=== PATIENT | male | born 1945 | race Caucasian/White ===

== ENCOUNTER 2024-10-14 06:04 | Day surgery (SDC) | payer BC, MEDICARE ==
[2024-10-08 10:52] LABS: Urine Bacteria None Seen /hpf (None Seen)
[2024-10-08 11:08] LABS: Urine Blood Negative /uL (Negative); Urine Clarity Clear (Clear); Urine Color Light-Yellow (Yellow); Urine Protein, UAD TRACE (Negative); Urine Specific Gravity 1.018 (1.001-1.035); Urine Squamous Epithelial Cell None Seen /hpf (<5); Urine Urobilinogen Normal (Negative); Urine pH 5.5 (5.0-9.0)
[2024-10-08 11:09] LABS: Basophils # (auto) 0 10 ^3/uL (0-0.2); Basophils % (auto) 0.7 % (0.0-2.0); Eosinophils # (auto) 0.4 10 ^3/uL (0-0.8); Eosinophils % (auto) 6.9 % (0.0-7.0); Lymphocytes # (auto) 1.1 10 ^3/uL (0.4-5.4); Monocytes # (auto) 0.6 10 ^3/uL (0-1.3); Neutrophils # (auto) 3.3 10 ^3/uL (1.6-8.6)
[2024-10-08 11:12] LABS: Hematocrit 38.3 % (41.0-53.0); Hemoglobin 12.9 g/dL (13.5-17.5); INR 1.36 (0.9-1.15); Lymphocytes % (auto) 20.1 % (10.0-50.0); Mean Corpuscular Hemoglobin 34.2 pg (28.0-32.0); Mean Corpuscular Hgb Conc. 33.5 g/dL (32.0-36.0); Monocytes % (auto) 11.4 % (0.0-12.0); Neutrophils % (auto) 60.9 % (37.0-80.0); Nucleated Red Blood Cells % 0.1 %; Partial Thromboplastin Time 49.2 SEC (24.5-34.5); Platelet Count (auto) 199 10^3/uL (140-450); Red Blood Cells 3.76 10^6/uL (4.5-5.90); Red Cell Distribution Width 12.6 % (11.8-14.3); White Blood Cell 5.3 10^3/uL (4.4-10.8)
[2024-10-08 11:25] LABS: Alanine Aminotransferase 15 U/L (7-40); Albumin 4.4 g/dL (3.2-4.8); Alkaline Phosphatase 96 U/L (46-116); Anion Gap 7 (5-15); Aspartate Aminotransferase 14 U/L (13-40); Calcium 9.9 mg/dL (8.7-10.4); Carbon Dioxide 28 mmol/L (20-31); Glucose 94 mg/dL (74-106); Sodium 144 mmol/L (136-145)
[2024-10-08 11:27] LABS: Bilirubin, Total 0.5 mg/dL (0.2-1.0)
[2024-10-08 11:35] LABS: Blood Urea Nitrogen 34 mg/dL (9-23); Chloride 109 mmol/L (98-107)
[~2024-10-14] VITALS: Ht 180.3 cm; Wt 83.9 kg
[~2024-10-14 06:04] MED LIST: ALFU1TAB15 PO; ATOR20TA50 PO; DABI150C5 PO; FLUT1AER3 IN; GABA-1250 PO; HYDR-4902 PO; MONT-8 PO; PANT40TA2 PO; PRAM0.7513 PO; SILD20TA41 PO; SOTA80TA PO; ZOLP10TA6 PO
[2024-10-14] MEDS ORDERED: ceFAZolin 2 GM/D5W100ml 100 ML IV ONE (06:14)
[2024-10-14] MEDS ORDERED: CLINDAMYCIN 600MG IV 0 ML IV ONE (06:14)
[2024-10-14] MEDS ORDERED: fentaNYL CITRATE 100 MCG/2 ML VL ONE (06:57)
[2024-10-14] MEDS ORDERED: PHENYLEPHRINE HCL 10 MG/ML VL ONE (06:58)
[2024-10-14] MEDS ORDERED: PROPOFOL 10 MG/ML 20 ML IV ONE ×2 (06:58→08:35)
[2024-10-14] MEDS: LIDOCAINE W/ EPINEPHRINE 2% INJ 20ML VIAL ONE (07:34)
[2024-10-14] MEDS: BUPIVACAINE 0.25% INJ 50ML VIAL ONE (07:34)
[2024-10-14] MEDS: MORPHINE SULF PF 5 MG/10 ML VIAL ONE (07:35)
[2024-10-14] MEDS ORDERED: ePHEDrine SULFATE 50 MG/ML AMP ONE (07:53)
[2024-10-14 08:19] VITALS: TEMP 97.9; O2SAT 96
[2024-10-14 08:51] VITALS: BP 131/51; PULSE 57; RESP 15; O2SAT 95
--- NOTE | 2024-10-14 09:05 | DVH ---
C-ARM FLUOROSCOPY: PROCEDURE: nerve ablation FLUOROSCOPY TIME: 145.9 sec DAP: 59 mgy FINDINGS: Spot intraoperative C arm radiographs demonstrating nerve ablation. IMPRESSION: Please refer to surgical report for detailed findings.
--- NOTE | 2024-10-14 09:05 | DVH ---
C-ARM FLUOROSCOPY: PROCEDURE: nerve ablation FLUOROSCOPY TIME: 145.9 sec DAP: 59 mgy FINDINGS: Spot intraoperative C arm radiographs demonstrating nerve ablation. IMPRESSION: Please refer to surgical report for detailed findings.
== END 2024-10-14 09:06 | disposition home or self-care (01) ==
LOC: SUR 06:04
PROVIDERS: ATTEND Anesthesiology Pain Medicine
DX: M54.51 Vertebrogenic low back pain (principal); G89.29 Other chronic pain; M47.816 Spondylosis without myelopathy or radiculopathy, lumbar region; M51.369 Other intervertebral disc degeneration, lumbar region without mention of lumbar back pain or lower extremity pain; M48.061 Spinal stenosis, lumbar region without neurogenic claudication; M79.18 Myalgia, other site; M19.90 Unspecified osteoarthritis, unspecified site; I48.0 Paroxysmal atrial fibrillation; J43.9 Emphysema, unspecified; N18.30 Chronic kidney disease, stage 3 unspecified; Z79.01 Long term (current) use of anticoagulants; Z79.899 Other long term (current) drug therapy; Z98.890 Other specified postprocedural states; Z88.8 Allergy status to other drugs, medicaments and biological substances; Z91.040 Latex allergy status; Z91.011 Allergy to milk products
CPT/HCPCS: 36415; 64628; 72100; 80053; 81001; 85025; 85610; 85730; A4215; C1889; J2270; J2371; J2704; J3010; 76000; J3490

== ENCOUNTER → 2025-02-18 | Outpatient (CLI) | payer MEDICARE ==
[~2025-02-18] VITALS: Ht 180.3 cm; Wt 81.6 kg
[2025-02-18] MEDS: REGADENOSON 0.4 MG/5 ML SYRG IV ONE ×2 (09:11→09:23)
--- NOTE | 2025-02-18 18:44 | DVHSR ---
APPROVED REPORT Exam: Nuclear Stress Test BMI: 0 Stress Test Details HR Max Heart Rate (APMHR): 142.772289 bpm Target HR (85% APMHR): 120.367341 bpm BP ECG Stress ECG Conclusion lvef 61% fixed inferior wall defect no major ischemia noted NM EXAM: Myocardial Perfusion REST/STRESS Imaging Protocol: Rest Tc-99m/Stress Tc-99m 1 day Resting Data Rest SPECT myocardial perfusion imaging was performed in supine position 60 minutes following the int ravenous injection of 10.5 mCi of Tc-99m Sestamibi. Time of rest injection: 08:05 Date: 02/18/2025 Time of rest imagin:05 Date: 02/18/2025 Administration Route: IV Administration Site: Right AC Pharmacologic Stress Pharmacologic stress test was performed by injecting Regadenoson 0.4 mg IV push followed by the intra venous injection of 30.5 mCi of Tc-99m Sestamibi. Time of stress injection: 09:24 Date: 02/18/2025 Time of stress imagin:24 Date: 02/18/2025 Administration Route: IV Administration Site: Right AC Gated Stress SPECT was performed 60 minutes after stress injection. The images were gated to evaluate regional wall motion and calculate left ventricular ejection fracti on. Stress only was performed in the Supine position. Nuclear Conclusion Nuclear Findings: negative for ischemia lvef 61% fixed inferior wall defect no major ischemia noted
== END | disposition home or self-care (01) ==
LOC: XYW 07:39
PROVIDERS: ATTEND Specialist
DX: I10 Essential (primary) hypertension (principal); I48.91 Unspecified atrial fibrillation; R06.02 Shortness of breath
CPT/HCPCS: 78452; 93017; A9500; J2785

== ENCOUNTER 2025-03-29 10:16 | Inpatient (IN) | payer MEDICARE ==
[~2025-03-29] VITALS: Ht 180.3 cm; Wt 81.6 kg
--- NOTE | 2025-03-29 10:24 | ED.PDOC ---
SOB-HPI HPI Comments HPI: Faye 80 y.o male presents to the ED via EMS for a chief complaint of SOB that started 2 days ago that worsened today. EMS reports patient was using his inhaler today, had no sx relief prompting him to call 911. EMS reports per patient, his initial SPO2 at home reads between 85-92% RA and presents to the ED with saturation at 88% RA. Patient did receive one breathing tx in route with symptom relief per patient. Patient denies any other associating symptoms. Patient is alert and oriented x 4. Patient is not on any oxygen at home, states he only uses his inhaler. Vital prior to ED arrival HR; 111 BP: 93/49 Vitals Temp: 98.8 HR:98 BP:106/78 RR:22 SPO2:95% RA Past Medical history: COPD, emphysema, HLD Past Surgical history: Medications: Gabapentin and inhaler Social History: Denies smoking, ETOH, and drug use. Allergies: NKA FAYE: DYSPNEA HYPOXEMIA HPI: Poor Historian. Patient was hypoxic at the scene. Improved after supplemental oxygen by EMS. Past Medical History: Past Surgical History: REVIEW OF SYSTEMS: CONSTITUTIONAL: Denies acute: fever, diaphoresis, chills, HEAD: Denies acute: headache, photophobia Eyes: Denies acute: Double vision, vision loss, eye pain, eye discharge. EARS: Denies acute: tinnitus, hearing loss, ear discharge, ear pain, THROAT: Denies acute: sore throat, swelling, difficulty swallowing , pain with swallowing, change in voice. NECK: Denies acute: neck pain, neck swelling, stiff neck. HEART: Denies acute : chest pain, palpitations, LUNGS: Denies acute: wheezing, cough, hemoptysis ABDOMEN: Denies acute: abdominal pain, Nausea, Vomiting, diarrhea, melena , hematemesis, hematochezia SKIN: Denies acute: rash, redness, lesions, itchiness. EXTREMITIES: Denies acute: calf pain, numbness, tingling, weakness, denies pain in extremity. Denies acute: Low back pain. Neuro: Denies acute: focal neurological deficit, motor or sensory focal neurological deficit, tremors, seizure like activity, confusion, dizziness, change in mental status, loss of bowel or bladder function, cauda equina like symptoms. : Denies acute: dysuria, hematuria, flank pain, increase in urinary frequency. PSYCH: Denies acute: hallucination, suicidal ideation, homicidal ideation. PHYSICAL EXAM: General: ----nlnj-xw-vjilzjxp----acute distress, awake and alert. Head: normocephalic, atraumatic. Neck: supple, trachea is midline, no swelling. Throat: Normal phonation. Eyes:, no erythema, no purulent discharge, no proptosis, no icterus. Heart: regular rate, regular rhythm, no significant murmur appreciated. Lungs: Wyam-qn-vpieucla apparent respiratory distress, Able to speak in full sentences. No wheezing, no rhonchi, no crackles. No stridors Abdomen: non tender to palpation, non distended, soft, no guarding, no rebound, + bowel sounds. Neuro: Awake, Alert, oriented to name, self, situation, follows commands GCS=15. Speech is normal. Skin: no petechia, no purpura, no cyanosis, non-pale, not jaundice. Lower extremities: --1/4 b/l- Pitting edema no deformity, no focal swelling, no calf TTP. Makes eye contact. moves all four extremities. Face: no apparent facial droop. ED COURSE: DISCLAIMER: This medical document was created using an electronic medical record system with voice recognition software and computerized dictation system. Although this document has been carefully reviewed, there might still be some phonetic and typographical errors. Occasional wrong-word or "sound-alike" substitutions may have occurred due to the inherent limitations of voice recognition software. These areas are purely typographical due to imperfections of the software programs and do not reflect any compromise in the patient's medical care. Please read the chart carefully and recognize, using context, where these substitutions have occurred. 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 Was a procedure done?: No Differential Dx Differential Diagnosis: Bronchitis, COPD, Pneumonia, Respiratory Distress, URI, Other (DDx include ACS, unstable angina, anxiety, PE, pneumothroax, neoplasm, cardiac ischemia, COPD, asthma, CHF, pleural effusion, tobacco abuse, pneumonia, hypoxia, hypercapnia, anemia., infection/sepsis., pulmonary edema. Asthma, Cardiac tamponade, infection.) X-Ray, Labs, Meds, VS Vital Signs Date Time Temp Pulse Resp B/P (MAP) Pulse Ox O2 Delivery O2 Flow Rate FiO2 03/29/25 17:22 97.4 88 20 106/63 (77) 90 97.4 03/29/25 15:12 98.7 90 20 82/57 (65) 91 98.7 03/29/25 12:08 100.6 92 20 92/49 (63) 95 100.6 03/29/25 12:03 92 20 95 Nasal Cannula* 2 28 03/29/25 11:54 18 96 Nasal Cannula* 2 28 03/29/25 11:14 98.8 98 22 106/78 95 98.8 Lab Test 03/29/25 16:04 03/29/25 13:52 03/29/25 13:30 03/29/25 11:59 Range/Units Troponin I High Sensitivity 24 39 49 </=54 ng/L Urine Color Yellow Yellow Urine Clarity Turbid H Clear Urine pH 5.5 5.0-9.0 Urine Specific [place] 1.024 1.001-1.035 Urine Protein 1+ H Negative Urine Ketones Negative Negative Urine Blood Negative Negative /uL Urine Nitrite Negative Negative Urine Bilirubin Negative Negative Urine Urobilinogen Normal Negative mg/dL Urine Leukocyte Esterase Negative Negative /uL Urine RBC 2 0 - 3 /hpf Urine Microscopic WBC 3 0-3 /HPF Urine Squamous Epithelial Cells Few <5 /hpf Urine Amorphous Crystals Few None Seen /hpf Urine Bacteria None seen None Seen /hpf Urine Glucose Normal Normal mg/dL Lactic Acid Level 2.0 0.4-2.0 mmol/L White Blood Count 25.4 H 4.4-10.8 10^3/uL Red Blood Count 3.04 L 4.5-5.90 10^6/uL Hemoglobin 10.3 L 13.5-17.5 g/dL Hematocrit 30.4 L 41.0-53.0 % Mean Corpuscular Volume 99.9 80.0-100.0 fL Mean Corpuscular Hemoglobin 33.8 H 28.0-32.0 pg Mean Corpuscular Hemoglobin Concent 33.8 32.0-36.0 g/dL Red Cell Distribution Width 13.5 11.8-14.3 % Platelet Count 478 H 140-450 10^3/uL Mean Platelet Volume 7.5 6.9-10.8 fL Neutrophils (%) (Auto) 37.0-80.0 % Lymphocytes (%) (Auto) 10.0-50.0 % Monocytes (%) (Auto) 0.0-12.0 % Basophils (%) (Auto) 0.0-2.0 % Neutrophils # (Auto) 1.6-8.6 10 ^3/uL Lymphocytes # (Auto) 0.4-5.4 10 ^3/uL Monocytes # (Auto) 0-1.3 10 ^3/uL Differential Total Cells Counted 100.0 100 Neutrophils % (Manual) 90 H 37.0-80.0 Band Neutrophils % (Manual) 0 Lymphocytes % (Manual) 2 L 10.0-50.0 Monocytes % (Manual) 8 0-12 Eosinophils % (Manual) 0 0-7 Basophils % (Manual) 0 0.0-2.0 Metamyelocytes % (manual) 0 Myelocytes % (Manual) 0 Promyelocytes % (Manual) 0 Blast Cells % (Manual) 0 Reactive Lymphocytes 0 Platelet Estimate Adequate Prothrombin Time 15.1 H 9.3-11.8 sec Prothrombin Time INR 1.48 H 0.9-1.15 Activated Partial Thromboplast Time 58.1 H 24.5-34.5 SEC Sodium Level 135 L 136-145 mmol/L Potassium Level 4.8 3.5-5.1 mmol/L Chloride Level 102 98-107 mmol/L Carbon Dioxide Level 22 20-31 mmol/L Anion Gap 11 5-15 Blood Urea Nitrogen 43 H 9-23 mg/dL Creatinine 2.85 H 0.700-1.30 mg/dL Glomerular Filtration Rate Calc 22 >90 mL/min BUN/Creatinine Ratio 15.1 10.0-20.0 Serum Glucose 101 74-106 mg/dL Calcium Level 9.0 8.7-10.4 mg/dL Magnesium Level 1.9 1.6-2.6 mg/dL Total Bilirubin 0.4 0.2-1.0 mg/dL Aspartate Amino Transferase (AST) 11 L 13-40 U/L Alanine Aminotransferase (ALT) < 9 7-40 U/L Alkaline Phosphatase 79 46-116 U/L B-Type Natriuretic Peptide 616.38 0-100 pg/mL Total Protein 7.0 5.7-8.2 g/dL Albumin 3.8 3.2-4.8 g/dL Microbiology Date/Time Source Procedure Growth Status 03/29/25 13:30 Blood Blood Culture - Preliminary NO GROWTH AFTER 72 HOURS OF INCUBATION. Resulted 03/29/25 13:20 Blood Blood Culture - Preliminary NO GROWTH AFTER 72 HOURS OF INCUBATION. Resulted [place] [address] Ph: [phone] DIAGNOSTIC IMAGING Diagnostic Imaging Report : [id number] Signed PATIENT: AMBROSE MCKINNEY ACCT: [id number] UNIT: [id number] : 1945 LOC: ER ROOM / BED: / AGE / SEX: 80 / M ADM STATUS: REG ER SERVICE 1028 ORDERING PHYSICIAN: ERIC LUCAS DO PROCEDURE(s): CXRP - CHEST PORTABLE REASON: SOB ORDER NUMBER(s): [id number], ACCESSION NUMBER(s): [id number] XY CHEST PORTABLE, HISTORY: SOB COMPARISON: None None TECHNICAL DATA: 1 view of the chest was obtained. FINDINGS: Lines and tubes: None Cardiomediastinal silhouette: normal Pulmonary vasculature: normal Lung expansion: normal Lung airspace: Left basilar consolidation with small left pleural effusion. Lung interstitium: normal Pleura: left effusion, small. Pneumothorax: no Bones: Unremarkable Other: no IMPRESSION: Left basilar consolidation with small left pleural effusion. ATED BY: DALLAS MCCLELLAND MD DICTATED DATE/TIME: 03/29/251057 SIGNED BY: DALLAS MCCLELLAND MD SIGNED DATE/TIME: 03/29/251057 CC: Time of 1ST Reevaluation: 12:32 (As of now all labs are still pending) Reevaluation 1ST: Improved Patient Education/Counseling: Diagnosis, Treatment, Prognosis Family Education/Counseling: No Family Present Comments MDM: patient presented with the above HPI.---respiratory distress---workup was initiated. patient was found with the above mentioned diagnosis. the following medications were ordered: please refer to order lists of meds and tests obtained by myself Dr. Lucas. Patient ED course and VS have been stabilized. Patient has been reassessed in the ED and remained in a stable condition. Pertinent incidental findings were discussed with the patient and/or family. Patient/family voices understanding and is agreeable with plan. Patient has been observed in the ED adequate length of time to insure improvement/stability. Escalation of care considered: Consideration of escalation to observation or admission Patient was given COPD exacerbation treatment with DuoNeb and Solu-Medrol. Sepsis bundle was initiated with IV antibiotics. Patient was ADMITTED to the medicine team for further evaluation and treatment of their presentation. All the reports of any imaging studies that were ordered by myself were reviewed by myself. Departure 1 Departure Time of Disposition: 10:57 Impression: Primary Impression: COPD exacerbation Additional Impressions: Hypoxemia Pneumonia Sepsis Fever Leukocytosis Disposition: ADMITTED INPATIENT Admit to: Tele Condition: Guarded Discharged With: Self Critical Care Note Critical Care Time?: Yes (1 hr-critical care time only) I personally scribed for ERIC LUCAS DO ([email or web address]) on 03/29/25 at 10:24. Electronically submitted by Rocío Velazquez ([facility]). I personally scribed for ERIC LUCAS DO ([email or web address]) on 03/29/25 at 10:55. Electronically submitted by Rocío Velazquez ([facility]). I personally scribed for ERIC LUCAS DO ([email or web address]) on 03/29/25 at 12:46. Electronically submitted by Rocío Velazquez ([facility]). I personally scribed for ERIC LUCAS DO ([email or web address]) on 03/29/25 at 15:29. Electronically submitted by Rocío Velazquez ([facility]). ERIC LUCAS DO Mar 29, 2025 10:24
--- NOTE | 2025-03-29 11:01 | DVH ---
XY CHEST PORTABLE, HISTORY: SOB COMPARISON: None None TECHNICAL DATA: 1 view of the chest was obtained. FINDINGS: Lines and tubes: None Cardiomediastinal silhouette: normal Pulmonary vasculature: normal Lung expansion: normal Lung airspace: Left basilar consolidation with small left pleural effusion. Lung interstitium: normal Pleura: left effusion, small. Pneumothorax: no Bones: Unremarkable Other: no IMPRESSION: Left basilar consolidation with small left pleural effusion.
[2025-03-29] MEDS: IPRATROPIUM BROM 0.5 MG/2.5ML INH SOL NEB ONE (11:51)
[2025-03-29] MEDS: ALBUTEROL SULF 2.5 MG/0.5ML(0.5%) NEB SOLN NEB ONE (11:51)
[2025-03-29] MEDS: methylPREDNISolone SOD SUCC 125 MG/2 ML VL IV ONE (11:54)
[2025-03-29] MEDS: cefTRIAXone 1GM/50ML D5W 50 ML IV ONE (11:56)
[2025-03-29 12:03] VITALS: PULSE 92; RESP 20; O2SAT 95
[2025-03-29] MEDS ORDERED: VANCOMYCIN 1GM/200ML PM 200 ML IV ONE (12:15)
[2025-03-29 12:39] LABS: Hemoglobin 10.3 g/dL (13.5-17.5)
[2025-03-29 12:41] LABS: Hematocrit 30.4 % (41.0-53.0); Mean Corpuscular Hemoglobin 33.8 pg (28.0-32.0); Mean Corpuscular Volume 99.9 fL (80.0-100.0)
[2025-03-29 12:49] LABS: Albumin 3.8 g/dL (3.2-4.8); Alkaline Phosphatase 79 U/L (46-116); Anion Gap 11 (5-15); BUN/Creatinine Ratio 15.1 (10.0-20.0); Calcium 9.0 mg/dL (8.7-10.4); Carbon Dioxide 22 mmol/L (20-31); Chloride 102 mmol/L (98-107); Glucose 101 mg/dL (74-106); Magnesium 1.9 mg/dL (1.6-2.6); Potassium 4.8 mmol/L (3.5-5.1); Total Protein 7.0 g/dL (5.7-8.2)
[2025-03-29 12:50] LABS: Alanine Aminotransferase < 9 U/L (7-40); Bilirubin, Total 0.4 mg/dL (0.2-1.0); Blood Urea Nitrogen 43 mg/dL (9-23); Sodium 135 mmol/L (136-145)
[2025-03-29] MEDS: LACTATED RINGER'S 2,350 ML IV ONE (12:51)
[2025-03-29 13:01] LABS: Total Cells Counted 100.0 (100)
[2025-03-29 13:23] LABS: INR 1.48 (0.9-1.15); Partial Thromboplastin Time 58.1 SEC (24.5-34.5); Prothrombin Time 15.1 sec (9.3-11.8)
[2025-03-29] MEDS: CEFEPIME 1GM/ 50ML 50 ML IV ONE (14:00)
[2025-03-29] MEDS: VANCOMYCIN 1GM/250ML KIT 250 ML IV ONE (15:05)
[2025-03-29 15:35] LABS: Urine Amorphous Crystal FEW /hpf (None Seen); Urine Protein, UAD 1+ (Negative)
[2025-03-29] MEDS ORDERED: NITROGLYCERIN 0.4 MG SL TAB SL PRN (19:00)
[2025-03-29] MEDS ORDERED: MORPHINE SULFATE INJ 2 MG/ml SYRG IV PRN ×2 (19:00)
--- NOTE | 2025-03-29 19:52 | DVHINCON2 ---
Date of service: Mar 29, 2025 History of Present Illness HPI Patient is a 80-year-old gentleman who presented to the hospital for 2 days of shortness of breaths. It seems that oxygen saturation was 85-92% at home on room air. In emergency room it was 88%. Cardiology is involved for cardiac aspects of care. Patient is known to our practice from outside and before. Does have history of emphysema/COPD. Patient mentions poor appetite for around a week. Is found to be leukocytotic in emergency room. Home Meds Reported Medications Mdbbxayfpxs-Wzironmphuql-Xeoef (Trelegy Ellipta 100-62.5-25 Mcg/INH) 1 Aer Aer, 1 AER IN, AER 10/08/24 Gabapentin (Gabapentin) 300 Mg Cap, 300 MG PO for 30 Days, MG 10/08/24 Zolpidem Tartrate (Zolpidem Tartrate) 10 Mg Tab, 1 TAB PO, #30 TAB 2 Refills 10/08/24 Dabigatran Etexilate Mesylate (Pradaxa) 150 Mg Cap, 1 CAP PO, #180 CAP 1 Refill 10/08/24 Montelukast Sodium (MONTELUKAST SODIUM) 10 Mg Tab, 10 MG PO, TAB 10/08/24 Sildenafil Citrate (Sildenafil Citrate) 20 Mg Tab, 20 MG PO, TAB 25 Alfuzosin Hydrochloride (ALFUZOSIN HCL ER) 10 Mg Tab, 10 MG PO, TAB 10/08/24 Sotalol Hcl (Sotalol Hcl) 80 Mg Tab, 80 MG PO, TAB 10/08/24 Pantoprazole Sodium Sesquihydr (Protonix) 40 Mg Tab, 40 MG PO DAILY, #30 TAB 10/08/24 Hydrocodone-Acetaminophen (Hydrocodone Bitartrate/AC 5-325 mg) 1 Tab Tab, 1 TAB PO, TAB 10/08/24 Pramipexole Dihydrochloride (Pramipexole Dihydrochlori) 0.75 Mg Tab, 0.125 MG PO, TAB 10/08/24 Atorvastatin Calcium (ATORVASTATIN CALCIUM) 20 Mg Tab, 1 TAB PO DAILY, #30 TAB 5 Refills 10/08/24 Past Medical History Others Past medical history includes COPD/emphysema, hyperlipidemia, lung nodule, anemia, CKD (GFR around 25-30), BPH, chronic pancreatitis, restless leg syndrome, lumbar radiculopathy, peripheral artery disease, atrial fibrillation (on Pradaxa and sotalol as outpatient), insomnia and old history of inguinal hernia. Smoker: No Hx (Negative) Alocohol: None Review of Systems Pulmonary/Respiratory: Dyspnea, Cough All Other Systems 14 point review of system was performed. Relevant findings as per above and as per HPI. Otherwise negative H&P Exam Vital Signs Vital Signs Date Time Temp Pulse Resp B/P (MAP) Pulse Ox O2 Delivery O2 Flow Rate FiO2 03/29/25 17:22 97.4 88 20 106/63 (77) 90 97.4 03/29/25 12:03 Nasal Cannula* 2 28 General Appeara: Well developed Head Exam: Normal inspection Eye Exam: bilateral eye PERRL Pulmonary/Respiratory: Rhonci Cardiovascular/Chest: Systolic murmur Abdominal Exam: Normal bowel sounds, Soft Neuro/Mental St: Alert, Oriented Appearance: Appropriate appearance Eye contact/ Speech: Cooperative Labs/Xrays Labs Test 03/29/25 16:04 03/29/25 13:52 03/29/25 13:30 03/29/25 11:59 Range/Units Troponin I High Sensitivity 24 </=54 ng/L Urine Color Yellow Yellow Urine Clarity Turbid H Clear Urine pH 5.5 5.0-9.0 Urine Specific [place] 1.024 1.001-1.035 Urine Protein 1+ H Negative Urine Ketones Negative Negative Urine Blood Negative Negative /uL Urine Nitrite Negative Negative Urine Bilirubin Negative Negative Urine Urobilinogen Normal Negative mg/dL Urine Leukocyte Esterase Negative Negative /uL Urine RBC 2 0 - 3 /hpf Urine Microscopic WBC 3 0-3 /HPF Urine Squamous Epithelial Cells Few <5 /hpf Urine Amorphous Crystals Few None Seen /hpf Urine Bacteria None seen None Seen /hpf Urine Glucose Normal Normal mg/dL Lactic Acid Level 2.0 0.4-2.0 mmol/L White Blood Count 25.4 H 4.4-10.8 10^3/uL Red Blood Count 3.04 L 4.5-5.90 10^6/uL Hemoglobin 10.3 L 13.5-17.5 g/dL Hematocrit 30.4 L 41.0-53.0 % Mean Corpuscular Volume 99.9 80.0-100.0 fL Mean Corpuscular Hemoglobin 33.8 H 28.0-32.0 pg Mean Corpuscular Hemoglobin Concent 33.8 32.0-36.0 g/dL Red Cell Distribution Width 13.5 11.8-14.3 % Platelet Count 478 H 140-450 10^3/uL Mean Platelet Volume 7.5 6.9-10.8 fL Neutrophils (%) (Auto) 37.0-80.0 % Lymphocytes (%) (Auto) 10.0-50.0 % Monocytes (%) (Auto) 0.0-12.0 % Basophils (%) (Auto) 0.0-2.0 % Neutrophils # (Auto) 1.6-8.6 10 ^3/uL Lymphocytes # (Auto) 0.4-5.4 10 ^3/uL Monocytes # (Auto) 0-1.3 10 ^3/uL Differential Total Cells Counted 100.0 100 Neutrophils % (Manual) 90 H 37.0-80.0 Band Neutrophils % (Manual) 0 Lymphocytes % (Manual) 2 L 10.0-50.0 Monocytes % (Manual) 8 0-12 Eosinophils % (Manual) 0 0-7 Basophils % (Manual) 0 0.0-2.0 Metamyelocytes % (manual) 0 Myelocytes % (Manual) 0 Promyelocytes % (Manual) 0 Blast Cells % (Manual) 0 Reactive Lymphocytes 0 Platelet Estimate Adequate Prothrombin Time 15.1 H 9.3-11.8 sec Prothrombin Time INR 1.48 H 0.9-1.15 Activated Partial Thromboplast Time 58.1 H 24.5-34.5 SEC Sodium Level 135 L 136-145 mmol/L Potassium Level 4.8 3.5-5.1 mmol/L Chloride Level 102 98-107 mmol/L Carbon Dioxide Level 22 20-31 mmol/L Anion Gap 11 5-15 Blood Urea Nitrogen 43 H 9-23 mg/dL Creatinine 2.85 H 0.700-1.30 mg/dL Glomerular Filtration Rate Calc 22 >90 mL/min BUN/Creatinine Ratio 15.1 10.0-20.0 Serum Glucose 101 74-106 mg/dL Calcium Level 9.0 8.7-10.4 mg/dL Magnesium Level 1.9 1.6-2.6 mg/dL Total Bilirubin 0.4 0.2-1.0 mg/dL Aspartate Amino Transferase (AST) 11 L 13-40 U/L Alanine Aminotransferase (ALT) < 9 7-40 U/L Alkaline Phosphatase 79 46-116 U/L B-Type Natriuretic Peptide 616.38 0-100 pg/mL Total Protein 7.0 5.7-8.2 g/dL Albumin 3.8 3.2-4.8 g/dL Assessment/Plan Plan Patient is a 80-year-old gentleman who presented to the hospital for 2 days of shortness of breaths. It seems that oxygen saturation was 85-92% at home on room air. In emergency room it was 88%. Cardiology is involved for cardiac aspects of care. Patient is known to our practice from outside and before. Does have history of emphysema/COPD. Patient mentions poor appetite for around a week. Is found to be leukocytotic in emergency room. Past medical history includes COPD/emphysema, hyperlipidemia, lung nodule, anemia, CKD (GFR around 25-30), BPH, chronic pancreatitis, restless leg syndrome, lumbar radiculopathy, peripheral artery disease, atrial fibrillation (on Pradaxa and sotalol as outpatient), insomnia and old history of inguinal hernia. Echocardiogram of February 2025 (performed in the office) revealed preserved ejection fraction WBC: 25.4 Hemoglobin: 10.3 BNP: 616.38 Creatinine: 2.85 Potassium: 4.8 Troponin (high sensitive): 49- 39 - 24 Chest x-ray revealed: IMPRESSION: Left basilar consolidation with small left pleural effusion. EKG revealed atrial fibrillation with RVR Tele reveals atrial fibrillation with RVR Patient is a 80-year-old gentleman who presented with shortness of breath and acute respiratory failure. Presentation is in favor of COPD exacerbation. Was found to have leukocytosis and pneumonia could have contributed to the clinical picture. Does have baseline history of atrial fibrillation and was found to have atrial fibrillation with RVR which could contributed clinical picture Pneumonia, community-acquired COPD exacerbation Emphysema Atrial fibrillation CKD at baseline Anemia Cardiac suggestion for management: Managed on telemetry Follow-up electrolytes and kidney function tests and correct abnormalities Full anticoagulation (on Pradaxa as outpatient). You may give Eliquis as inpatient for now Request for Echocardiogram Request for CT of the chest without contrast Pulmonary evaluation is advised Further evaluation and management depends on the above and clinical course Thank you for consultation A total of 75 minutes was spent reviewing the patient record, examining the patient, making a diagnostic and therapeutic plan, discussing this plan with medical personnel, following up on diagnostic studies and following the patient for clinical stability excluding any and all procedures. At least 50% of this time was spent in direct, [id number] contact. Thank you for allowing me to participate in this patient's care. Further recommendations will depend on patient's clinical course. Please do not hesitate to contact me if you have any questions or concerns. This medical document was created using electronic medical record system with [employer] computerized dictation system. Although this document has been carefully reviewed, there may still be some phonetic and typographical errors. These areas are purely typographical due to the imperfection of the software programs, and do not reflect any compromise in the patient's medical care. Plan discussed with: Patient, Other (Nurse) NAV DENSON MD Mar 29, 2025 19:52
--- NOTE | 2025-03-29 21:10 | DVHHP2 ---
Allergies: Coded Allergies: NO KNOWN ALLERGIES (Unverified , 06/05/10) Home Meds Reported Medications Dfkylhfghvg-Wxwhfciziowb-Iqemq (Trelegy Ellipta 100-62.5-25 Mcg/INH) 1 Aer Aer, 1 AER IN, AER 10/08/24 Gabapentin (Gabapentin) 300 Mg Cap, 300 MG PO for 30 Days, MG 10/08/24 Zolpidem Tartrate (Zolpidem Tartrate) 10 Mg Tab, 1 TAB PO, #30 TAB 2 Refills 10/08/24 Dabigatran Etexilate Mesylate (Pradaxa) 150 Mg Cap, 1 CAP PO, #180 CAP 1 Refill 10/08/24 Montelukast Sodium (MONTELUKAST SODIUM) 10 Mg Tab, 10 MG PO, TAB 10/08/24 Sildenafil Citrate (Sildenafil Citrate) 20 Mg Tab, 20 MG PO, TAB 10/08/24 Alfuzosin Hydrochloride (ALFUZOSIN HCL ER) 10 Mg Tab, 10 MG PO, TAB 10/08/24 Sotalol Hcl (Sotalol Hcl) 80 Mg Tab, 80 MG PO, TAB 10/08/24 Pantoprazole Sodium Sesquihydr (Protonix) 40 Mg Tab, 40 MG PO DAILY, #30 TAB 10/08/24 Hydrocodone-Acetaminophen (Hydrocodone Bitartrate/AC 5-325 mg) 1 Tab Tab, 1 TAB PO, TAB 10/08/24 Pramipexole Dihydrochloride (Pramipexole Dihydrochlori) 0.75 Mg Tab, 0.125 MG PO, TAB 10/08/24 Atorvastatin Calcium (ATORVASTATIN CALCIUM) 20 Mg Tab, 1 TAB PO DAILY, #30 TAB 5 Refills 10/08/24 Current Medications Current Medications Medications (Trade) Dose Ordered Sig/Anjel Route PRN Reason Start Time Stop Time Status Last Admin Cefepime HCl 50 ml @ 12.5 mls/hr DAILY IV 03/30/25 10:00 Cancel Acetaminophen (Tylenol Tablet) 325 mg Q4HP PRN PO MILD PAIN (1-3 PAIN SCALE) 03/29/25 19:00 Morphine Sulfate 2 mg Q4HPRN PRN IV SEVERE PAIN (7-10 PAIN SCALE) 03/29/25 19:00 Nitroglycerin (Ntrostat Sublingual) 0.4 mg Q5MINP PRN SL FOR CHEST PAIN 03/29/25 19:00 Morphine Sulfate 2 mg Q30M PRN IV FOR CHEST PAIN 03/29/25 19:00 Piperacillin Sod/ Tazobactam Sod 100 ml @ 25 mls/hr Q8HR IV 03/29/25 22:00 Vital Signs Vital Signs Date Time Temp Pulse Resp B/P (MAP) Pulse Ox O2 Delivery O2 Flow Rate FiO2 03/29/25 19:58 98.4 95 24 107/60 (76) 91 98.4 03/29/25 12:03 Nasal Cannula* 2 28 SEPSIS Sepsis Screen Date sepsis recognized/suspect: Mar 29, 2025 Time Sepsis recognized/suspect: 1017 Recent Procedure: No On Antibiotic Therapy: No Respiratory Rate >20: No Heart Rate >90: Yes Temp<36 C (96.8 F) or >38.3 C: No SBP <90 or MAP <65 mmHG: No New Acute Mental Status Change: No Is the patient on CPAP, BIPAP,: No Physician Orders Manager Ccu (03/29/25 ) Chest Portable (03/29/25 10:28) Electrocardigram (03/29/25 10:28) Electrocardigram (03/29/25 11:28) Electrocardigram (03/29/25 13:28) Accucheck (03/29/25 12:12) Blood Culture (03/29/25 12:12) Notify Md If Map <65 Or Bp<90 (03/29/25 12:12) If Map<65 Start Vasopressor (03/29/25 12:12) Sepsis Reassesment After Fluid (03/29/25 13:12) Admit (03/29/25 18:47) Acetaminophen Tablet (Tylenol Tablet) (03/29/25 19:00) Complete Blood Count (03/30/25 04:00) Comprehensive Metabolic Panel (03/30/25 04:00) Cardiac Diet-2gna,Lofat,Lochol (03/30/25 Breakfast) Morphine Sulfate Injection (03/29/25 19:00) Nitroglycerin Sublingual (Ntrostat Subli (03/29/25 19:00) Morphine Sulfate Injection (03/29/25 19:00) Stat Ekg For Chest Pain (03/29/25 18:47) Notify Md Of Changes From Base (03/29/25 18:47) Life Guard For 24 Hours (03/29/25 18:47) Emergency Dysrhythmia Protocol (03/29/25 18:47) Rhythm Strips Once Every Shift (03/29/25 18:47) Oxygen By Nasal Cannula (03/29/25 18:47) * Cardiology Consult (03/29/25 18:49) *Consult / (03/29/25 18:49) Piperacillin-Tazob 3.375gm (Zosyn 3.375g (03/29/25 22:00) Echo 2d Mode Cardiac Dop (03/29/25 19:53) Vital Signs Date Time Temp Pulse Resp B/P (MAP) Pulse Ox O2 Delivery O2 Flow Rate FiO2 03/29/25 19:58 98.4 95 24 107/60 (76) 91 98.4 03/29/25 17:22 97.4 88 20 106/63 (77) 90 97.4 03/29/25 15:12 98.7 90 20 82/57 (65) 91 98.7 03/29/25 12:08 100.6 92 20 92/49 (63) 95 100.6 03/29/25 12:03 92 20 95 Nasal Cannula* 2 28 03/29/25 11:54 18 96 Nasal Cannula* 2 28 03/29/25 11:14 98.8 98 22 106/78 95 98.8 Laboratory Tests Test 03/29/25 11:59 03/29/25 13:30 White Blood Count 25.4 10^3/uL (4.4-10.8) H Lactic Acid Level 2.0 mmol/L (0.4-2.0) Medications Medications Dose Ordered Sig/Anjel Route Start Time Stop Time Status Last Admin Dose Admin Albuterol 2.5 mg ONCE ONCE NEB 03/29/25 10:30 03/29/25 10:32 DC 03/29/25 11:51 Cefepime HCl 50 ml @ 50 mls/hr ONCE ONCE IV 03/29/25 12:30 03/29/25 13:29 DC 03/29/25 14:00 Ceftriaxone Sodium 50 ml @ 100 mls/hr ONCE ONCE IV 03/29/25 11:15 03/29/25 11:44 DC 03/29/25 11:56 Ipratropium [place] 1 mg ONCE ONCE NEB 03/29/25 10:30 03/29/25 10:32 DC 03/29/25 11:51 Lactated Ringer's 2,350 ml @ 2,350 mls/hr ONCE ONCE IV 03/29/25 12:15 03/29/25 13:15 DC 03/29/25 12:51 Methylprednisolone Sodium Succinate 125 mg ONCE ONCE IV 03/29/25 10:30 03/29/25 10:32 DC 03/29/25 11:54 Vancomycin HCl 250 ml @ 250 mls/hr ONCE ONCE IV 03/29/25 13:00 03/29/25 13:59 DC 03/29/25 15:05 Results Labs Test 03/29/25 16:04 03/29/25 13:52 03/29/25 13:30 03/29/25 11:59 Range/Units Troponin I High Sensitivity 24 </=54 ng/L Urine Color Yellow Yellow Urine Clarity Turbid H Clear Urine pH 5.5 5.0-9.0 Urine Specific [place] 1.024 1.001-1.035 Urine Protein 1+ H Negative Urine Ketones Negative Negative Urine Blood Negative Negative /uL Urine Nitrite Negative Negative Urine Bilirubin Negative Negative Urine Urobilinogen Normal Negative mg/dL Urine Leukocyte Esterase Negative Negative /uL Urine RBC 2 0 - 3 /hpf Urine Microscopic WBC 3 0-3 /HPF Urine Squamous Epithelial Cells Few <5 /hpf Urine Amorphous Crystals Few None Seen /hpf Urine Bacteria None seen None Seen /hpf Urine Glucose Normal Normal mg/dL Lactic Acid Level 2.0 0.4-2.0 mmol/L White Blood Count 25.4 H 4.4-10.8 10^3/uL Red Blood Count 3.04 L 4.5-5.90 10^6/uL Hemoglobin 10.3 L 13.5-17.5 g/dL Hematocrit 30.4 L 41.0-53.0 % Mean Corpuscular Volume 99.9 80.0-100.0 fL Mean Corpuscular Hemoglobin 33.8 H 28.0-32.0 pg Mean Corpuscular Hemoglobin Concent 33.8 32.0-36.0 g/dL Red Cell Distribution Width 13.5 11.8-14.3 % Platelet Count 478 H 140-450 10^3/uL Mean Platelet Volume 7.5 6.9-10.8 fL Neutrophils (%) (Auto) 37.0-80.0 % Lymphocytes (%) (Auto) 10.0-50.0 % Monocytes (%) (Auto) 0.0-12.0 % Basophils (%) (Auto) 0.0-2.0 % Neutrophils # (Auto) 1.6-8.6 10 ^3/uL Lymphocytes # (Auto) 0.4-5.4 10 ^3/uL Monocytes # (Auto) 0-1.3 10 ^3/uL Differential Total Cells Counted 100.0 100 Neutrophils % (Manual) 90 H 37.0-80.0 Band Neutrophils % (Manual) 0 Lymphocytes % (Manual) 2 L 10.0-50.0 Monocytes % (Manual) 8 0-12 Eosinophils % (Manual) 0 0-7 Basophils % (Manual) 0 0.0-2.0 Metamyelocytes % (manual) 0 Myelocytes % (Manual) 0 Promyelocytes % (Manual) 0 Blast Cells % (Manual) 0 Reactive Lymphocytes 0 Platelet Estimate Adequate Prothrombin Time 15.1 H 9.3-11.8 sec Prothrombin Time INR 1.48 H 0.9-1.15 Activated Partial Thromboplast Time 58.1 H 24.5-34.5 SEC Sodium Level 135 L 136-145 mmol/L Potassium Level 4.8 3.5-5.1 mmol/L Chloride Level 102 98-107 mmol/L Carbon Dioxide Level 22 20-31 mmol/L Anion Gap 11 5-15 Blood Urea Nitrogen 43 H 9-23 mg/dL Creatinine 2.85 H 0.700-1.30 mg/dL Glomerular Filtration Rate Calc 22 >90 mL/min BUN/Creatinine Ratio 15.1 10.0-20.0 Serum Glucose 101 74-106 mg/dL Calcium Level 9.0 8.7-10.4 mg/dL Magnesium Level 1.9 1.6-2.6 mg/dL Total Bilirubin 0.4 0.2-1.0 mg/dL Aspartate Amino Transferase (AST) 11 L 13-40 U/L Alanine Aminotransferase (ALT) < 9 7-40 U/L Alkaline Phosphatase 79 46-116 U/L B-Type Natriuretic Peptide 616.38 0-100 pg/mL Total Protein 7.0 5.7-8.2 g/dL Albumin 3.8 3.2-4.8 g/dL Plan discussed with: Patient Problems List: (1) Leukocytosis Status: Acute (2) Hypoxemia Status: Acute (3) Pneumonia Status: Acute (4) COPD exacerbation Status: Acute Assessment & Plan: Subjective History of Present Illness Mr. 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 The patient was brought to the hospital due to acute respiratory failure, with a hypoxic respiration rate and oxygen saturation of 85%. Upon evaluation, the patient was found to have acute respiratory failure and an increased white blood cell count of 25.4. A chest X-ray revealed left basal consolidation with small left pleural effusion. The patient is being admitted for pneumonia, specifically gram-negative pneumonia. The patient's current episode appears to be an exacerbation of their underlying COPD, complicated by the newly diagnosed pneumonia. The severity of the patient's condition is evident from the need for hospital admission and the presence of acute respiratory failure. Medical History - Chronic kidney disease (CKD) stage V - Atrial fibrillation (AFib), persistent - Lumbar radiculopathy - Chronic obstructive pulmonary disease (COPD) - emphysema, on home oxygen Medications and Supplements - Home oxygen Social History - Substance Use: Home oxygen use for COPD-emphysema Review of Systems Respiratory: Positive for shortness of breath, difficulty breathing. Objective Vital Signs - Respiratory Rate: 85 breaths per minute - Oxygen Saturation: 85% Laboratory, Imaging, and Diagnostic Test Results - CBC: WBC 25.4 (elevated) - Chest X-ray: Left basal consolidation with small left pleural effusion - Oxygen saturation: 85% Assessment & Plan Mr. 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 Gram-negative pneumonia Assessment: Patient presented with shortness of breath and difficulty breathing. Chest X-ray showed left basal consolidation with small left pleural effusion. White blood cell count was elevated at 25.4, indicating leukocytosis. These findings, along with the patient's acute respiratory failure and hypoxia (oxygen saturation of 85%), are consistent with gram-negative pneumonia. Plan: - Initiate IV antibiotics - Request pulmonary consultation - Monitor leukocytosis Acute respiratory failure Assessment: Patient presented with acute respiratory failure, likely secondary to pneumonia and exacerbation of underlying COPD. On presentation, patient had hypoxic respiration with oxygen saturation of 85%. Plan: - Admit patient for management of acute respiratory failure - Continue home oxygen therapy - Manage concurrently with pneumonia treatment Atrial fibrillation (persistent) Assessment: Patient has a history of atrial fibrillation, which is noted to be persistent. Case was discussed with induction machine operator, Dr. Isiah Brooks, who also evaluated the patient. Plan: - Continue current management as per induction machine operator recommendations Chronic Kidney Disease (CKD) Stage V Assessment: Patient has a history of CKD stage V. 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 Current presentation with respiratory symptoms and acute respiratory failure suggests an exacerbation of COPD. Plan: - Continue IV antibiotics - Consult with JAIDEN Nunes MD Mar 29, 2025 21:10
[2025-03-29 23:05] VITALS: BP 106/69; PULSE 84; RESP 20; TEMP 97.6; O2SAT 94
[2025-03-29 23:59] VITALS: PULSE 84; RESP 20; O2SAT 94
[2025-03-30] VITALS (13 sets, daily range): BP systolic 90–101; BP diastolic 50–65; PULSE 62–80; RESP 18–20; TEMP 97.6–98.1; O2SAT 90–98
[2025-03-30] MEDS ORDERED: HYDR1TAB97 PO (00:21)
[2025-03-30] MEDS ORDERED: FAMO20TA10 PO (00:21)
[2025-03-30] MEDS ORDERED: [UNRECOGNIZED DRUG - CODE] PO (00:21)
[2025-03-30] MEDS ORDERED: ALBU108A5 INH (00:21)
[2025-03-30] MEDS: PIPERACILLIN-TAZOB 3.375GM 100 ML IV SCH ×2 (00:25→14:54)
[2025-03-30 07:06] LABS: Hemoglobin 9.0 g/dL (13.5-17.5)
[2025-03-30 07:13] LABS: Alanine Aminotransferase 12 U/L (7-40); Alkaline Phosphatase 81 U/L (46-116); Anion Gap 10 (5-15); BUN/Creatinine Ratio 20.0 (10.0-20.0); Calcium 9.2 mg/dL (8.7-10.4); Carbon Dioxide 23 mmol/L (20-31); Chloride 105 mmol/L (98-107); Potassium 4.4 mmol/L (3.5-5.1); Sodium 138 mmol/L (136-145); Total Protein 6.7 g/dL (5.7-8.2)
[2025-03-30 07:14] LABS: Albumin 3.5 g/dL (3.2-4.8)
[2025-03-30 07:16] LABS: Hematocrit 27.1 % (41.0-53.0); Mean Corpuscular Hemoglobin 33.2 pg (28.0-32.0); Mean Corpuscular Volume 99.6 fL (80.0-100.0)
[2025-03-30 07:20] LABS: Bilirubin, Total < 0.2 mg/dL (0.2-1.0); Blood Urea Nitrogen 53 mg/dL (9-23); Glucose 137 mg/dL (74-106)
--- NOTE | 2025-03-30 07:59 | DVHPN2 ---
Progress Note - Dictate Date Seen: Mar 30, 2025 Medical Necessity Reason Pt with a Central, PICC or Fol: No vital signs Vital Sign Date Time Temp Pulse Resp B/P (MAP) Pulse Ox O2 Delivery O2 Flow Rate FiO2 03/30/25 05:00 98.1 79 18 92/61 (71) 94 98.1 03/29/25 23:59 Nasal Cannula* 2 28 Total Intake and Output 03/29/25 03/29/25 03/30/25 15:00 23:00 07:00 Intake Total 100 ml Balance 100 ml medications Current Medications Medications Dose Ordered Sig/Anjel Route Start Time Stop Time Status Last Admin Dose Admin Cefepime HCl 50 ml @ 12.5 mls/hr DAILY IV 03/30/25 10:00 Cancel Acetaminophen 325 mg Q4HP PRN PO 03/29/25 19:00 Morphine Sulfate 2 mg Q4HPRN PRN IV 03/29/25 19:00 Nitroglycerin 0.4 mg Q5MINP PRN SL 03/29/25 19:00 Morphine Sulfate 2 mg Q30M PRN IV 03/29/25 19:00 Piperacillin Sod/ Tazobactam Sod 100 ml @ 25 mls/hr Q8HR@0100,0900,1700 IV 03/30/25 09:00 laboratory and microbiology Laboratory Tests 03/30/25 05:49 Test 03/30/25 05:49 Range/Units Serum Glucose 137 H 74-106 mg/dL Assessment/Plan Patient is a 80-year-old gentleman who presented to the hospital for 2 days of shortness of breaths. It seems that oxygen saturation was 85-92% at home on room air. In emergency room it was 88%. Cardiology is involved for cardiac aspects of care. Patient is known to our practice from outside and before. Does have history of emphysema/COPD. Patient mentions poor appetite for around a week. Is found to be leukocytotic in emergency room. Past medical history includes COPD/emphysema, hyperlipidemia, lung nodule, anemia, CKD (GFR around 25-30), BPH, chronic pancreatitis, restless leg syndrome, lumbar radiculopathy, peripheral artery disease, atrial fibrillation (on Pradaxa and sotalol as outpatient), insomnia and old history of inguinal hernia. Echocardiogram of February 2025 (performed in the office) revealed preserved ejection fraction WBC: 25.4 - 23.6 Hemoglobin: 10.3 - 9.0 BNP: 616.38 Creatinine: 2.85 - 2.65 Potassium: 4.8 - 4.4 Troponin (high sensitive): 49- 39 - 24 Chest x-ray revealed: IMPRESSION: Left basilar consolidation with small left pleural effusion. EKG revealed atrial fibrillation with RVR Tele reveals atrial fibrillation with RVR Patient is a 80-year-old gentleman who presented with shortness of breath and acute respiratory failure. Presentation is in favor of COPD exacerbation. Was found to have leukocytosis and pneumonia could have contributed to the clinical picture. Does have baseline history of atrial fibrillation and was found to have atrial fibrillation with RVR which could contributed clinical picture Pneumonia, community-acquired COPD exacerbation Emphysema Atrial fibrillation CKD at baseline Anemia Cardiac suggestion for management: Managed on telemetry Follow-up electrolytes and kidney function tests and correct abnormalities Full anticoagulation (on Pradaxa as outpatient). You may give therapeutic Lovenox as inpatient for now Request for Echocardiogram Request for CT of the chest without contrast Pulmonary evaluation is advised Further evaluation and management depends on the above and clinical course A total of 55 minutes was spent reviewing the patient record, examining the patient, making a diagnostic and therapeutic plan, discussing this plan with medical personnel, following up on diagnostic studies and following the patient for clinical stability excluding any and all procedures. At least 50% of this time was spent in direct, [id number] contact. Thank you for allowing me to participate in this patient's care. Further recommendations will depend on patient's clinical course. Please do not hesitate to contact me if you have any questions or concerns. This medical document was created using electronic medical record system with [employer] computerized dictation system. Although this document has been carefully reviewed, there may still be some phonetic and typographical errors. These areas are purely typographical due to the imperfection of the software programs, and do not reflect any compromise in the patient's medical care. Plan discussed with: Patient, Other (nurse) NAV DENSON MD Mar 30, 2025 07:59
[2025-03-30 09:24] LABS: Total Cells Counted 100.0 (100)
[2025-03-30] MEDS ORDERED: APIXABAN 5 MG TAB PO SCH (10:00)
[2025-03-30] MEDS ORDERED: CEFEPIME 1GM/ 50ML 50 ML IV SCH (10:00)
--- NOTE | 2025-03-30 10:34 | DVH ---
Procedure: CT CHEST WITHOUT CONTRAST Reason for study/Clinical History: Shortness of Breath Comparison Study: XY CHEST PORTABLE on DOS: 03/29/25 TECHNIQUE: Multidetector CT of the chest was performed from the lung apices to the upper abdomen with out the use of intravenous contract. Axial, coronal and sagittal multiplanar reformats were performed . Radiation Dose Information: CT Dose: CTDI volume is 8.68 mGy. Dose-length product is 332.16 mGy*cm The dose indicators for CT are the volume Computed Tomography (CT) Dose Index (CTDIvol) and the Dose Length Product (DLP), and are measured in units of mGy and mGy-cm, respectively. These indicators are not patient dose, but values generated from the CT scanner acquisition factors. The report includes radiation exposure data for exposures received during this examination. FINDINGS: Lower neck: Unremarkable. Lungs: Left lower lobe airspace disease. Patchy airspace opacities in the right lung base. Heart/Vascular Structures: Cardiomegaly. Vascular calcifications of the aorta. Coronary artery calc ifications. Lymph Nodes: No adenopathy Pleura: Moderate left pleural effusion. Musculoskeletal: No acute osseous abnormality. Degenerative changes of the spine. Soft tissues: Normal. Upper abdomen: Limited portions of the upper abdomen are unremarkable. IMPRESSION: Left lower lobe airspace disease. Moderate left pleural effusion. Patchy airspace opacities in the right lung base may represent atelectasis.
[2025-03-30] MEDS: ATORVASTATIN 20 MG TAB PO SCH (11:01)
[2025-03-30] MEDS: FAMOTIDINE 20 MG TAB PO SCH (11:01)
[2025-03-30] MEDS: GABAPENTIN 300 MG CAP PO SCH (11:01)
[2025-03-30] MEDS: ENOXAPARIN SOD 100 MG/1 ML SYRINGE SC SCH (11:11)
[2025-03-30] MEDS: DOXYCYCLINE 100MG/100ML 100 ML IV SCH ×2 (11:30→23:26)
[2025-03-30] MEDS: SILDENAFIL CITRATE 20 MG TAB PO SCH (14:18)
[2025-03-30] MEDS: SOTALOL HCL 80 MG TAB PO SCH (14:22)
[2025-03-30] MEDS ORDERED: ALBUTEROL SULF 2.5 MG/0.5ML(0.5%) NEB SOLN NEB SCH (18:00)
--- NOTE | 2025-03-30 18:05 | DVHINCON2 ---
Date of service: Mar 29, [address] cox Reason for Consultation COPD History of Present Illness HPI Patient is a 80-year-old gentleman known to us from previous admissions. He has a history of COPD/emphysema and is on home oxygen. Patient presented with worsening shortness of breath cough and wheezing few days. Came into the ER. Chest x-ray shows bilateral patchy opacities consistent with pneumonia. Patient admitted for further management. Home Meds Reported Medications Albuterol Sulfate (Albuterol Sulfate Hfa) 108 Mcg/Act Aer, INH Q4HP PRN for SHORTNESS OF BREATH 03/30/25 Famotidine (PEPCID TABLET) 20 Mg Tb, 10 MG PO DAILY, TAB 03/30/25 Hydrocodone-Acetaminophen (Hydrocodone/Acetaminophen 5-325 mg) 1 Tab Tab, 1 TAB PO Q8HPRN 03/30/25 Ensifentrine (Ohtuvayre) 3 Mg/2.5 Ml Nani, 2.5 ML PO DAILY 03/30/25 Knnhmvmurde-Pngnhnmasunm-Zodgy (Trelegy Ellipta 100-62.5-25 Mcg/INH) 1 Aer Aer, 1 AER IN, AER 10/08/24 Gabapentin (Gabapentin) 300 Mg Cap, 300 MG PO for 30 Days, MG 10/08/24 Zolpidem Tartrate (Zolpidem Tartrate) 10 Mg Tab, 1 TAB PO, #30 TAB 2 Refills 10/08/24 Dabigatran Etexilate Mesylate (Pradaxa) 150 Mg Cap, 1 CAP PO BID, #180 CAP 1 Refill 10/08/24 Montelukast Sodium (MONTELUKAST SODIUM) 10 Mg Tab, 10 MG PO HS, TAB 10/08/24 Sildenafil Citrate (Sildenafil Citrate) 20 Mg Tab, 20 MG PO BID, TAB 10/08/24 Alfuzosin Hydrochloride (ALFUZOSIN HCL ER) 10 Mg Tab, 10 MG PO DAILY, TAB 10/08/24 Sotalol Hcl (Sotalol Hcl) 80 Mg Tab, 40 MG PO BID, TAB 10/08/24 Pantoprazole Sodium Sesquihydr (Protonix) 40 Mg Tab, 40 MG PO DAILY, #30 TAB 10/08/24 Pramipexole Dihydrochloride (Pramipexole Dihydrochlori) 0.75 Mg Tab, 0.125 MG PO, TAB 2/20/25 Atorvastatin Calcium (ATORVASTATIN CALCIUM) 20 Mg Tab, 1 TAB PO DAILY, #30 TAB 5 Refills 10/08/24 Past Medical History Cardiac: HTN Pulmonary: COPD GI: No pertinent Hx Hemotology/Oncology: No pertinent Hx Hepatobiliary: No pertinent Hx Psychiatric: No pertinent Hx Musculoskeletal: No pertinent Hx Rheumotologic: No pertinent Hx Infectious Disease: No peritnent Hx ENT: No pertinent Hx Renal/: No pertinent Hx Endocrine: No pertinent Hx Dermatology: No pertinent Hx Others Past medical history includes COPD/emphysema, hyperlipidemia, lung nodule, anemia, CKD (GFR around 25-30), BPH, chronic pancreatitis, restless leg syndrome, lumbar radiculopathy, peripheral artery disease, atrial fibrillation (on Pradaxa and sotalol as outpatient), insomnia and old history of inguinal hernia. Past Surgical History: No pertinent Hx Family History: No pertinent Hx Patient Family History: Cerebrovascular accident (CVA) G8 FATHER FH: kidney failure G8 MOTHER Review of Systems Constitutional: No symptom reported Ears, Nose, & Throat: No symptom reported Eyes: No symptom reported Pulmonary/Respiratory: Dyspnea, Cough Cardiovascular: No symptom reported Gastrointestinal: No symptom reported Genitourinary: No symptom reported Musculoskeletal: No symptom reported Skin: No symptom reported Psychiatric: No symptom reported Endocrine: No symptom reported H&P Exam Vital Signs Vital Signs Date Time Temp Pulse Resp B/P (MAP) Pulse Ox O2 Delivery O2 Flow Rate FiO2 03/30/25 16:59 97.8 76 20 99/65 (76) 94 97.8 03/30/25 08:00 Nasal Cannula* 2 28 General Appeara: Well developed, Well nourished, Normal Appearance Head Exam: Normal inspection Neck Exam: Normal inspection, Non-tender, Normal alignment Eye Exam: bilateral eye Normal inspection, bilateral eye PERRL Ear Exam: bilateral ear Auricle normal, bilateral ear Canal normal Nasal Exam: Normal inspection Mouth: Normal Inspection Pulmonary/Respiratory: Normal inspection, Normal breath sounds Cardiovascular/Chest: Normal inspection Peripheral Pulses: 4+ carotid (R), 4+ carotid (L) Labs/Xrays Labs Test 03/30/25 05:49 03/29/25 16:04 03/29/25 13:52 03/29/25 13:30 Range/Units White Blood Count 23.6 H 4.4-10.8 10^3/uL Red Blood Count 2.72 L 4.5-5.90 10^6/uL Hemoglobin 9.0 L 13.5-17.5 g/dL Hematocrit 27.1 #L 41.0-53.0 % Mean Corpuscular Volume 99.6 80.0-100.0 fL Mean Corpuscular Hemoglobin 33.2 H 28.0-32.0 pg Mean Corpuscular Hemoglobin Concent 33.3 32.0-36.0 g/dL Red Cell Distribution Width 13.5 11.8-14.3 % Platelet Count 470 H 140-450 10^3/uL Mean Platelet Volume 7.7 6.9-10.8 fL Neutrophils (%) (Auto) 37.0-80.0 % Lymphocytes (%) (Auto) 10.0-50.0 % Monocytes (%) (Auto) 0.0-12.0 % Basophils (%) (Auto) 0.0-2.0 % Neutrophils # (Auto) 1.6-8.6 10 ^3/uL Lymphocytes # (Auto) 0.4-5.4 10 ^3/uL Monocytes # (Auto) 0-1.3 10 ^3/uL Differential Total Cells Counted 100.0 100 Neutrophils % (Manual) 91 H 37.0-80.0 Band Neutrophils % (Manual) 0 Lymphocytes % (Manual) 4 L 10.0-50.0 Monocytes % (Manual) 5 0-12 Eosinophils % (Manual) 0 0-7 Basophils % (Manual) 0 0.0-2.0 Metamyelocytes % (manual) 0 Myelocytes % (Manual) 0 Promyelocytes % (Manual) 0 Blast Cells % (Manual) 0 Reactive Lymphocytes 0 Platelet Estimate Increased Sodium Level 138 136-145 mmol/L Potassium Level 4.4 3.5-5.1 mmol/L Chloride Level 105 98-107 mmol/L Carbon Dioxide Level 23 20-31 mmol/L Anion Gap 10 5-15 Blood Urea Nitrogen 53 #H 9-23 mg/dL Creatinine 2.65 H 0.700-1.30 mg/dL Glomerular Filtration Rate Calc 24 >90 mL/min BUN/Creatinine Ratio 20.0 10.0-20.0 Serum Glucose 137 H 74-106 mg/dL Calcium Level 9.2 8.7-10.4 mg/dL Total Bilirubin < 0.2 L 0.2-1.0 mg/dL Aspartate Amino Transferase (AST) 18 13-40 U/L Alanine Aminotransferase (ALT) 12 7-40 U/L Alkaline Phosphatase 81 46-116 U/L Total Protein 6.7 5.7-8.2 g/dL Albumin 3.5 3.2-4.8 g/dL Troponin I High Sensitivity 24 </=54 ng/L Urine Color Yellow Yellow Urine Clarity Turbid H Clear Urine pH 5.5 5.0-9.0 Urine Specific [place] 1.024 1.001-1.035 Urine Protein 1+ H Negative Urine Ketones Negative Negative Urine Blood Negative Negative /uL Urine Nitrite Negative Negative Urine Bilirubin Negative Negative Urine Urobilinogen Normal Negative mg/dL Urine Leukocyte Esterase Negative Negative /uL Urine RBC 2 0 - 3 /hpf Urine Microscopic WBC 3 0-3 /HPF Urine Squamous Epithelial Cells Few <5 /hpf Urine Amorphous Crystals Few None Seen /hpf Urine Bacteria None seen None Seen /hpf Urine Glucose Normal Normal mg/dL Lactic Acid Level 2.0 0.4-2.0 mmol/L Test 03/29/25 11:59 Range/Units Prothrombin Time 15.1 H 9.3-11.8 sec Prothrombin Time INR 1.48 H 0.9-1.15 Activated Partial Thromboplast Time 58.1 H 24.5-34.5 SEC Magnesium Level 1.9 1.6-2.6 mg/dL B-Type Natriuretic Peptide 616.38 0-100 pg/mL Microbiology Date/Time Source Procedure Growth Status 03/29/25 13:30 Blood Blood Culture - Preliminary NO GROWTH AFTER 24 HOURS OF INCUBATION. Resulted Assessment/Plan Plan Acute exacerbation of COPD Emphysema Multifocal pneumonia Pain Acute on chronic hypoxemic respiratory failure CKD Management plan Supportive care/supplemental O2 Titrate to keep O2 sats above 90% Incentive spirometry Albuterol Atrovent bronchodilators Antibiotics Deescalate based on culture results Systemic steroids Transition to prednisolone with taper prior to discharge GI/DVT prophylaxis Patient will benefit from follow up Plan discussed with: Patient ELVI WASHINGTON MD Mar 30, 2025 18:05
--- NOTE | 2025-03-30 18:07 | DVHPN2 ---
Progress Note - Dictate Date Seen: Mar 30, 2025 Medical Necessity Reason Pt with a Central, PICC or Fol: No vital signs Vital Sign Date Time Temp Pulse Resp B/P (MAP) Pulse Ox O2 Delivery O2 Flow Rate FiO2 03/30/25 16:59 97.8 76 20 99/65 (76) 94 97.8 03/30/25 08:00 Nasal Cannula* 2 28 Total Intake and Output 03/29/25 03/29/25 03/30/25 15:00 23:00 07:00 Intake Total 100 ml Balance 100 ml medications Current Medications Medications Dose Ordered Sig/Anjel Route Start Time Stop Time Status Last Admin Dose Admin Cefepime HCl 50 ml @ 12.5 mls/hr DAILY IV 03/30/25 10:00 Cancel Acetaminophen 325 mg Q4HP PRN PO 03/29/25 19:00 Morphine Sulfate 2 mg Q4HPRN PRN IV 03/29/25 19:00 Nitroglycerin 0.4 mg Q5MINP PRN SL 03/29/25 19:00 Hold Morphine Sulfate 2 mg Q30M PRN IV 03/29/25 19:00 Piperacillin Sod/ Tazobactam Sod 100 ml @ 25 mls/hr Q8HR@0100,0900,1700 IV 03/30/25 09:00 03/30/25 14:54 25 MLS/HR Apixaban 5 mg BID PO 03/30/25 10:00 Hold Atorvastatin Calcium 20 mg DAILY PO 03/30/25 10:00 03/30/25 11:01 20 MG Famotidine 10 mg DAILY PO 03/30/25 10:00 03/30/25 11:01 10 MG Gabapentin 300 mg DAILY PO 03/30/25 10:00 03/30/25 11:01 300 MG Montelukast Sodium 10 mg HS PO 03/30/25 22:00 Sildenafil Citrate 20 mg BID PO 03/30/25 10:00 03/30/25 14:18 20 MG Sotalol HCl 40 mg BID PO 03/30/25 10:00 03/30/25 14:22 40 MG Enoxaparin Sodium 100 mg DAILY SC 03/30/25 10:00 03/30/25 11:11 100 MG Doxycycline Hyclate 100 ml @ 50 mls/hr Q12H IV 03/30/25 08:30 03/30/25 11:30 50 MLS/HR Albuterol 2.5 mg Q4HWA NEB 03/30/25 18:00 laboratory and microbiology Laboratory Tests 03/30/25 05:49 Test 03/30/25 05:49 Range/Units Serum Glucose 137 H 74-106 mg/dL Assessment/Plan Acute exacerbation of COPD /trelegy Emphysema Multifocal pneumonia Pain Acute on chronic hypoxemic respiratory failure CKD Management plan Supportive care/supplemental O2 Titrate to keep O2 sats above 90% Incentive spirometry Albuterol Atrovent bronchodilators Antibiotics Deescalate based on culture results GI/DVT prophylaxis management per primary team Plan discussed with: Patient ELVI WASHINGTON MD Mar 30, 2025 18:07
[2025-03-30] MEDS: ALBUTEROL SULF 2.5 MG/0.5ML(0.5%) NEB SOLN NEB SCH (18:38)
--- NOTE | 2025-03-30 19:06 | DVHSR ---
APPROVED REPORT EXAM: Two-dimensional and M-mode echocardiogram with Doppler and color Doppler. Blood Pressure: 97/63 mmHg INDICATION Atrial Fibrillation RISK FACTORS Height: 5'11", Weight: 210 DIMENSIONS LVDd4.9 (3.8-5.7cm)LA (2D)4.4 (1.9-4.0cm)Aortic Root3.1 (2.0-3.7cm) LVDs3.3 (2.5-4.0cm)LA (MM) (1.9-4.0cm)Aortic Cusp Exc1.0 (1.5-2.0cm) EF (%) 60.0 (55-70%)Rt. Atrium4.2 (1.9-4.0cm)Asc. Aorta cm IVSd0.6 (0.7-1.1cm)RV (D) (1.8-2.4cm) PWd0.8 (0.7-1.1cm) Mitral Valve MitralMitral Stenosis E wave1.01m/sMV Mean GR.mmHg A wave1.07m/sMV Peak GR.mmHg E/A ratio0.92D MVAcm2 DECEL [id number] 1/2 Timems Aortic Valve Aortic ValveAortic Stenosis V11.09m/Cecilio Mean GR.6mmHg V21.64m/Cecilio Peak GR.11mmHg LVOT Diameter2.2 (1.8-2.4cm)Doppler AVA2.53cm2 Tricuspid Valve TR Velocity2.94m/s [id number] Other Information Quality : Technically LimitedRhythm : Technically limited study due to body habitus. Conclusion Left ventricle: Left ventricle is normal-sized with normal systolic function. LVEF of 60-65%. Ther e was no gross wall motion abnormality. Right ventricle was normal-sized with normal systolic function. Both atria were mildly dilated. Aortic valve: Aortic valve was trileaflet. Aortic leaflets were mildly dilated. Aortic sclerosis wi th no stenosis was seen. There was no aortic insufficiency. There was mild mitral regurgitation. T here was [id number] tricuspid regurgitation. Pulmonary valve did not reveal any insufficiency. Right ventricular systolic pressure was assessed at 46 mm Hg. There was no pericardial effusion. Th ere was IVC dilatation with normal respiratory variation.
--- NOTE | 2025-03-30 21:31 | DVHPN2 ---
Progress Note - Dictate Date Seen: Mar 30, 2025 Medical Necessity Reason Pt with a Central, PICC or Fol: No vital signs Vital Sign Date Time Temp Pulse Resp B/P (MAP) Pulse Ox O2 Delivery O2 Flow Rate FiO2 03/30/25 18:44 74 18 93 03/30/25 18:38 Nasal Cannula* 2 28 03/30/25 16:59 97.8 99/65 (76) 97.8 Total Intake and Output 03/29/25 03/29/25 03/30/25 15:00 23:00 07:00 Intake Total 100 ml Balance 100 ml medications Current Medications Medications Dose Ordered Sig/Anjel Route Start Time Stop Time Status Last Admin Dose Admin Cefepime HCl 50 ml @ 12.5 mls/hr DAILY IV 03/30/25 10:00 Cancel Acetaminophen 325 mg Q4HP PRN PO 03/29/25 19:00 Morphine Sulfate 2 mg Q4HPRN PRN IV 03/29/25 19:00 Nitroglycerin 0.4 mg Q5MINP PRN SL 03/29/25 19:00 Hold Morphine Sulfate 2 mg Q30M PRN IV 03/29/25 19:00 Piperacillin Sod/ Tazobactam Sod 100 ml @ 25 mls/hr Q8HR@0100,0900,1700 IV 03/30/25 09:00 03/30/25 17:00 25 MLS/HR Apixaban 5 mg BID PO 03/30/25 10:00 Hold Atorvastatin Calcium 20 mg DAILY PO 03/30/25 10:00 03/30/25 11:01 20 MG Famotidine 10 mg DAILY PO 03/30/25 10:00 03/30/25 11:01 10 MG Gabapentin 300 mg DAILY PO 03/30/25 10:00 03/30/25 11:01 300 MG Montelukast Sodium 10 mg HS PO 03/30/25 22:00 Sildenafil Citrate 20 mg BID PO 03/30/25 10:00 03/30/25 14:18 20 MG Sotalol HCl 40 mg BID PO 03/30/25 10:00 03/30/25 14:22 40 MG Enoxaparin Sodium 100 mg DAILY SC 03/30/25 10:00 03/30/25 11:11 100 MG Albuterol 2.5 mg Q4HWA NEB 03/30/25 18:00 03/30/25 18:38 2.5 MG Doxycycline Hyclate 100 ml @ 50 mls/hr Q12H IV 03/30/25 22:00 laboratory and microbiology Laboratory Tests 03/30/25 05:49 Test 03/30/25 05:49 Range/Units Serum Glucose 137 H 74-106 mg/dL Assessment/Plan Subjective Patient was admitted for gram positive pneumonia. Current episode appears to be exacerbated by patient's underlying COPD. Chest x-ray revealed left basal consolidation with small left pleural effusion. Will continue current treatment and monitor daily labs. Medical History - Chronic kidney disease (CKD) stage V - Atrial fibrillation (AFib), persistent - Lumbar radiculopathy - Chronic obstructive pulmonary disease (COPD) - emphysema, on home oxygen Medications and Supplements - Home oxygen Social History - Substance Use: Home oxygen use for COPD-emphysema Review of Systems Respiratory: Positive for shortness of breath, difficulty breathing. Objective Vital Signs - Respiratory Rate: 85 breaths per minute - Oxygen Saturation: 85% Laboratory, Imaging, and Diagnostic Test Results - Chest X-ray: Left basal consolidation with small left pleural effusion - Oxygen saturation: 85% Assessment & Plan Gram-negative pneumonia Assessment: Patient presented with shortness of breath and difficulty breathing. Chest X-ray showed left basal consolidation with small left pleural effusion. White blood cell count was elevated at 25.4, indicating leukocytosis. These findings, along with the patient's acute respiratory failure and hypoxia (oxygen saturation of 85%), are consistent with gram-negative pneumonia. Plan: - Initiate IV antibiotics - Request pulmonary consultation - Monitor leukocytosis Acute respiratory failure Assessment: Patient presented with acute respiratory failure, likely secondary to pneumonia and exacerbation of underlying COPD. On presentation, patient had hypoxic respiration with oxygen saturation of 85%. Plan: - Admit patient for management of acute respiratory failure - Continue home oxygen therapy - Manage concurrently with pneumonia treatment Atrial fibrillation (persistent) Assessment: Patient has a history of atrial fibrillation, which is noted to be persistent. Case was discussed with swing frame grinder operator, Dr. Isiah Brooks, who also evaluated the patient. Plan: - Continue current management as per swing frame grinder operator recommendations Chronic Kidney Disease (CKD) Stage V Assessment: Patient has a history of CKD stage V. 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 Current presentation with respiratory symptoms and acute respiratory failure suggests an exacerbation of COPD. Plan: - Continue IV antibiotics - Consult with Dr. Larry Plan discussed with: Patient, Other JAIDEN SANTOS MD Mar 30, 2025 21:31
[2025-03-30] MEDS: MONTELUKAST SODIUM 10 MG TAB PO SCH (21:48)
[2025-03-31] VITALS (15 sets, daily range): BP systolic 93–128; BP diastolic 48–76; PULSE 55–85; RESP 16–20; TEMP 97.5–97.9; O2SAT 91–100
[2025-03-31] MEDS: ACETAMINOPHEN 325 MG TAB PO PRN (03:08)
--- NOTE | 2025-03-31 06:44 | DVHPN2 ---
Progress Note - Dictate Date Seen: Mar 31, 2025 Medical Necessity Reason Pt with a Central, PICC or Fol: No vital signs Vital Sign Date Time Temp Pulse Resp B/P (MAP) Pulse Ox O2 Delivery O2 Flow Rate FiO2 03/31/25 06:35 55 16 100 03/31/25 06:25 Nasal Cannula 2.0 03/31/25 06:25 28 03/31/25 06:16 112/71 (85) 03/31/25 05:00 97.6 97.6 Total Intake and Output 03/30/25 03/30/25 03/31/25 15:00 23:00 07:00 Intake Total 580 ml 720 ml Output Total 600 ml Balance -20 ml 720 ml medications Current Medications Medications Dose Ordered Sig/Anjel Route Start Time Stop Time Status Last Admin Dose Admin Cefepime HCl 50 ml @ 12.5 mls/hr DAILY IV 03/30/25 10:00 Cancel Acetaminophen 325 mg Q4HP PRN PO 03/29/25 19:00 03/31/25 03:08 325 MG Morphine Sulfate 2 mg Q4HPRN PRN IV 03/29/25 19:00 Nitroglycerin 0.4 mg Q5MINP PRN SL 03/29/25 19:00 Hold Morphine Sulfate 2 mg Q30M PRN IV 03/29/25 19:00 Piperacillin Sod/ Tazobactam Sod 100 ml @ 25 mls/hr Q8HR@0100,0900,1700 IV 03/30/25 09:00 03/31/25 01:30 25 MLS/HR Apixaban 5 mg BID PO 03/30/25 10:00 Hold Atorvastatin Calcium 20 mg DAILY PO 03/30/25 10:00 03/30/25 11:01 20 MG Famotidine 10 mg DAILY PO 03/30/25 10:00 03/30/25 11:01 10 MG Gabapentin 300 mg DAILY PO 03/30/25 10:00 03/30/25 11:01 300 MG Montelukast Sodium 10 mg HS PO 03/30/25 22:00 03/30/25 21:48 10 MG Sildenafil Citrate 20 mg BID PO 03/30/25 10:00 03/30/25 21:48 20 MG Sotalol HCl 40 mg BID PO 03/30/25 10:00 03/30/25 21:49 40 MG Enoxaparin Sodium 100 mg DAILY SC 03/30/25 10:00 03/30/25 11:11 100 MG Albuterol 2.5 mg Q4HWA NEB 03/30/25 18:00 03/31/25 06:24 2.5 MG Doxycycline Hyclate 100 ml @ 50 mls/hr Q12H IV 03/30/25 22:00 03/30/25 23:26 50 MLS/HR laboratory and microbiology Laboratory Tests 03/30/25 05:49 Test 03/30/25 05:49 Range/Units Serum Glucose 137 H 74-106 mg/dL Assessment/Plan Patient is a 80-year-old gentleman who presented to the hospital for 2 days of shortness of breaths. It seems that oxygen saturation was 85-92% at home on room air. In emergency room it was 88%. Cardiology is involved for cardiac aspects of care. Patient is known to our practice from outside and before. Does have history of emphysema/COPD. Patient mentions poor appetite for around a week. Is found to be leukocytotic in emergency room. Past medical history includes COPD/emphysema, hyperlipidemia, lung nodule, anemia, CKD (GFR around 25-30), BPH, chronic pancreatitis, restless leg syndrome, lumbar radiculopathy, peripheral artery disease, atrial fibrillation (on Pradaxa and sotalol as outpatient), insomnia and old history of inguinal hernia. Echocardiogram of February 2025 (performed in the office) revealed preserved ejection fraction WBC: 25.4 - 23.6 Hemoglobin: 10.3 - 9.0 BNP: 616.38 Creatinine: 2.85 - 2.65 Potassium: 4.8 - 4.4 Troponin (high sensitive): 49- 39 - 24 Chest x-ray revealed: IMPRESSION: Left basilar consolidation with small left pleural effusion. CT of chest revealed: IMPRESSION: Left lower lobe airspace disease. Moderate left pleural effusion. Patchy airspace opacities in the right lung base may represent atelectasis. EKG revealed atrial fibrillation with RVR Tele reveals atrial fibrillation with RVR Echocardiogram revealed: Left ventricle: Left ventricle is normal-sized with normal systolic function. LVEF of 60-65%. There was no gross wall motion abnormality. Right ventricle was normal-sized with normal systolic function. Both atria were mildly dilated. Aortic valve: Aortic valve was trileaflet. Aortic leaflets were mildly dilated. Aortic sclerosis with no stenosis was seen. There was no aortic insufficiency. There was mild mitral regurgitation. There was [id number] tricuspid regurgitation. Pulmonary valve did not reveal any insufficiency. Right ventricular systolic pressure was assessed at 46 mm Hg. There was no pericardial effusion. There was IVC dilatation with normal respiratory variation. Patient is a 80-year-old gentleman who presented with shortness of breath and acute respiratory failure. Presentation is in favor of COPD exacerbation. Was found to have leukocytosis and pneumonia could have contributed to the clinical picture. Does have baseline history of atrial fibrillation and was found to have atrial fibrillation with RVR which could contributed clinical picture. Being followed by Pulmonary Pneumonia, community-acquired, multifocal COPD exacerbation Emphysema Atrial fibrillation CKD at baseline Anemia Cardiac suggestion for management: Manage on telemetry Follow-up electrolytes and kidney function tests and correct abnormalities Full anticoagulation (on Pradaxa as outpatient). You may give therapeutic Lovenox as inpatient for now Pulmonary following Further evaluation and management depends on the above and clinical course A total of 55 minutes was spent reviewing the patient record, examining the patient, making a diagnostic and therapeutic plan, discussing this plan with medical personnel, following up on diagnostic studies and following the patient for clinical stability excluding any and all procedures. At least 50% of this time was spent in direct, [id number] contact. Thank you for allowing me to participate in this patient's care. Further recommendations will depend on patient's clinical course. Please do not hesitate to contact me if you have any questions or concerns. This medical document was created using electronic medical record system with [employer] computerized dictation system. Although this document has been carefully reviewed, there may still be some phonetic and typographical errors. These areas are purely typographical due to the imperfection of the software programs, and do not reflect any compromise in the patient's medical care. Plan discussed with: Patient, Other (nurse) NAV DENSON MD Mar 31, 2025 06:44
[2025-03-31 10:04] LABS: Nucleated Red Blood Cells % 0.0 %
[2025-03-31 10:05] LABS: Albumin 3.5 g/dL (3.2-4.8); Alkaline Phosphatase 78 U/L (46-116); Anion Gap 11 (5-15); BUN/Creatinine Ratio 22.5 (10.0-20.0); Calcium 9.1 mg/dL (8.7-10.4); Carbon Dioxide 23 mmol/L (20-31); Chloride 106 mmol/L (98-107); Hematocrit 29.9 % (41.0-53.0); Hemoglobin 10.1 g/dL (13.5-17.5); Magnesium 2.1 mg/dL (1.6-2.6); Mean Corpuscular Hemoglobin 34.0 pg (28.0-32.0); Mean Corpuscular Volume 100.2 fL (80.0-100.0); Potassium 4.7 mmol/L (3.5-5.1); Sodium 140 mmol/L (136-145); Total Protein 6.7 g/dL (5.7-8.2)
[2025-03-31 11:02] LABS: Alanine Aminotransferase 47 U/L (7-40); Bilirubin, Total < 0.2 mg/dL (0.2-1.0); Blood Urea Nitrogen 60 mg/dL (9-23); Glucose 146 mg/dL (74-106)
--- NOTE | 2025-03-31 16:22 | DVHINCON2 ---
Date of service: Mar 31, 2025 Referring Physician eula Reason for Consultation ANTONY History of Present Illness 80 years old male with past medical history of COPD, Chronic kidney disease four, hypertension,COPD/emphysema, hyperlipidemia, lung nodule, anemia, BPH, chronic pancreatitis, restless leg syndrome, lumbar radiculopathy, peripheral artery disease, atrial fibrillation (on Pradaxa and sotalol as outpatient), insomnia and old history of inguinal hernia. Presented with chief complaints of shortness of breath worsening for the past few days prior to admission, also complains of left lower abdominal pain very severe denies any radiation, denies urinary complaints, found to have pneumonia currently being treated with antibiotics IV Past Medical History As per HPI Past Surgical History As per HPI Allergies: Coded Allergies: NO KNOWN ALLERGIES (Unverified , 06/05/10) Home Meds Reported Medications Albuterol Sulfate (Albuterol Sulfate Hfa) 108 Mcg/Act Aer, INH Q4HP PRN for SHORTNESS OF BREATH 03/30/25 Famotidine (PEPCID TABLET) 20 Mg Tb, 10 MG PO DAILY, TAB 03/30/25 Hydrocodone-Acetaminophen (Hydrocodone/Acetaminophen 5-325 mg) 1 Tab Tab, 1 TAB PO Q8HPRN 03/30/25 Ensifentrine (Ohtuvayre) 3 Mg/2.5 Ml Nani, 2.5 ML PO DAILY 03/30/25 Kkhbwbzckwa-Syzaxljhpemv-Lyobu (Trelegy Ellipta 100-62.5-25 Mcg/INH) 1 Aer Aer, 1 AER IN, AER 10/08/24 Gabapentin (Gabapentin) 300 Mg Cap, 300 MG PO for 30 Days, MG 10/08/24 Zolpidem Tartrate (Zolpidem Tartrate) 10 Mg Tab, 1 TAB PO, #30 TAB 2 Refills 10/08/24 Dabigatran Etexilate Mesylate (Pradaxa) 150 Mg Cap, 1 CAP PO BID, #180 CAP 1 Refill 10/08/24 Montelukast Sodium (MONTELUKAST SODIUM) 10 Mg Tab, 10 MG PO HS, TAB 10/08/24 Sildenafil Citrate (Sildenafil Citrate) 20 Mg Tab, 20 MG PO BID, TAB 10/08/24 Alfuzosin Hydrochloride (ALFUZOSIN HCL ER) 10 Mg Tab, 10 MG PO DAILY, TAB 10/08/24 Sotalol Hcl (Sotalol Hcl) 80 Mg Tab, 40 MG PO BID, TAB 10/08/24 Pantoprazole Sodium Sesquihydr (Protonix) 40 Mg Tab, 40 MG PO DAILY, #30 TAB 10/08/24 Pramipexole Dihydrochloride (Pramipexole Dihydrochlori) 0.75 Mg Tab, 0.125 MG PO, TAB 10/08/24 Atorvastatin Calcium (ATORVASTATIN CALCIUM) 20 Mg Tab, 1 TAB PO DAILY, #30 TAB 5 Refills 10/08/24 Current Medications Current Medications Medications (Trade) Dose Ordered Sig/Anjel Route PRN Reason Start Time Stop Time Status Last Admin Montelukast Sodium (Singulair Tablet) 10 mg HS PO 03/30/25 22:00 03/30/25 21:48 Albuterol (Ventolin Medneb) 2.5 mg Q6HWA [facility] 03/30/25 18:00 03/30/25 17:36 DC Albuterol (Ventolin Medneb) 2.5 mg Q4HWA [facility] 03/30/25 18:00 03/31/25 10:01 Doxycycline Hyclate 100 ml @ 50 mls/hr Q12H IV 03/30/25 22:00 03/31/25 10:26 Furosemide (Lasix Injection) 40 mg DAILY IV 04/01/25 10:00 UNV Family History: Cerebrovascular accident (CVA) G8 FATHER FH: kidney failure G8 MOTHER Review of Systems As documented in HPI otherwise negative H&P Exam Vital Signs/I&O Vital Sign Date Time Temp Pulse Resp B/P (MAP) Pulse Ox O2 Delivery O2 Flow Rate FiO2 03/31/25 15:00 85 17 109/57 (74) 03/31/25 13:00 97.6 93 97.6 03/31/25 06:25 Nasal Cannula 2.0 03/31/25 06:25 28 Intake and Output 03/30/25 03/31/25 19:00 07:00 Intake Total 580 ml 720 ml Output Total 600 ml Balance -20 ml 720 ml Intake Oral 580 ml 420 ml IV Total 300 ml Output Urine Total 600 ml # Voids 4 # Bowel Movements 1 Physical Exam General-not in any distress HEENT-normocephalic, no icterus, no pallor, neck supple Respiratory-fair air entry bilateral, [id number] heard, no murmurs appreciated Abdominal-soft, nontender, nondistended Musculoskeletal-no pedal edema, no calf tenderness Genitourinary-deferred Neuro-awake alert oriented x3, Psychiatric-not agitated, cooperative, Labs/Diagnostic Data Labs/Diagnostic Data Laboratory Tests Test 03/31/25 08:55 03/30/25 05:49 03/29/25 16:04 03/29/25 13:52 Range/Units White Blood Count 24.3 H 23.6 H 4.4-10.8 10^3/uL Red Blood Count 2.98 L 2.72 L 4.5-5.90 10^6/uL Hemoglobin 10.1 L 9.0 L 13.5-17.5 g/dL Hematocrit 29.9 #L 27.1 #L 41.0-53.0 % Mean Corpuscular Volume 100.2 H 99.6 80.0-100.0 fL Mean Corpuscular Hemoglobin 34.0 H 33.2 H 28.0-32.0 pg Mean Corpuscular Hemoglobin Concent 33.9 33.3 32.0-36.0 g/dL Red Cell Distribution Width 14.1 13.5 11.8-14.3 % Platelet Count 518 H 470 H 140-450 10^3/uL Mean Platelet Volume 7.7 7.7 6.9-10.8 fL Neutrophils (%) (Auto) 94.0 H 37.0-80.0 % Lymphocytes (%) (Auto) 3.0 L 10.0-50.0 % Monocytes (%) (Auto) 2.9 0.0-12.0 % Eosinophils (%) (Auto) 0.0 0.0-7.0 % Basophils (%) (Auto) 0.1 0.0-2.0 % Neutrophils # (Auto) 22.9 H 1.6-8.6 10 ^3/uL Lymphocytes # (Auto) 0.7 0.4-5.4 10 ^3/uL Monocytes # (Auto) 0.7 0-1.3 10 ^3/uL Eosinophils # (Auto) 0 0-0.8 10 ^3/uL Basophils # (Auto) 0 0-0.2 10 ^3/uL Nucleated Red Blood Cells 0.0 % Sodium Level 140 138 136-145 mmol/L Potassium Level 4.7 4.4 3.5-5.1 mmol/L Chloride Level 106 105 98-107 mmol/L Carbon Dioxide Level 23 23 20-31 mmol/L Anion Gap 11 10 5-15 Blood Urea Nitrogen 60 H 53 #H 9-23 mg/dL Creatinine 2.67 H 2.65 H 0.700-1.30 mg/dL Glomerular Filtration Rate Calc 24 24 >90 mL/min BUN/Creatinine Ratio 22.5 H 20.0 10.0-20.0 Serum Glucose 146 H 137 H 74-106 mg/dL Calcium Level 9.1 9.2 8.7-10.4 mg/dL Phosphorus Level 4.2 2.4-5.1 mg/dL Magnesium Level 2.1 1.6-2.6 mg/dL Total Bilirubin < 0.2 L < 0.2 L 0.2-1.0 mg/dL Aspartate Amino Transferase (AST) 52 H 18 13-40 U/L Alanine Aminotransferase (ALT) 47 H 12 7-40 U/L Alkaline Phosphatase 78 81 46-116 U/L B-Type Natriuretic Peptide 626.62 0-100 pg/mL Total Protein 6.7 6.7 5.7-8.2 g/dL Albumin 3.5 3.5 3.2-4.8 g/dL Differential Total Cells Counted 100.0 100 Neutrophils % (Manual) 91 H 37.0-80.0 Band Neutrophils % (Manual) 0 Lymphocytes % (Manual) 4 L 10.0-50.0 Monocytes % (Manual) 5 0-12 Eosinophils % (Manual) 0 0-7 Basophils % (Manual) 0 0.0-2.0 Metamyelocytes % (manual) 0 Myelocytes % (Manual) 0 Promyelocytes % (Manual) 0 Blast Cells % (Manual) 0 Reactive Lymphocytes 0 Platelet Estimate Increased Troponin I High Sensitivity 24 </=54 ng/L Urine Color Yellow Yellow Urine Clarity Turbid H Clear Urine pH 5.5 5.0-9.0 Urine Specific [place] 1.024 1.001-1.035 Urine Protein 1+ H Negative Urine Ketones Negative Negative Urine Blood Negative Negative /uL Urine Nitrite Negative Negative Urine Bilirubin Negative Negative Urine Urobilinogen Normal Negative mg/dL Urine Leukocyte Esterase Negative Negative /uL Urine RBC 2 0 - 3 /hpf Urine Microscopic WBC 3 0-3 /HPF Urine Squamous Epithelial Cells Few <5 /hpf Urine Amorphous Crystals Few None Seen /hpf Urine Bacteria None seen None Seen /hpf Urine Glucose Normal Normal mg/dL Test 03/29/25 13:30 03/29/25 11:59 Range/Units Lactic Acid Level 2.0 0.4-2.0 mmol/L Troponin I High Sensitivity 39 49 </=54 ng/L White Blood Count 25.4 H 4.4-10.8 10^3/uL Red Blood Count 3.04 L 4.5-5.90 10^6/uL Hemoglobin 10.3 L 13.5-17.5 g/dL Hematocrit 30.4 L 41.0-53.0 % Mean Corpuscular Volume 99.9 80.0-100.0 fL Mean Corpuscular Hemoglobin 33.8 H 28.0-32.0 pg Mean Corpuscular Hemoglobin Concent 33.8 32.0-36.0 g/dL Red Cell Distribution Width 13.5 11.8-14.3 % Platelet Count 478 H 140-450 10^3/uL Mean Platelet Volume 7.5 6.9-10.8 fL Neutrophils (%) (Auto) 37.0-80.0 % Lymphocytes (%) (Auto) 10.0-50.0 % Monocytes (%) (Auto) 0.0-12.0 % Basophils (%) (Auto) 0.0-2.0 % Neutrophils # (Auto) 1.6-8.6 10 ^3/uL Lymphocytes # (Auto) 0.4-5.4 10 ^3/uL Monocytes # (Auto) 0-1.3 10 ^3/uL Differential Total Cells Counted 100.0 100 Neutrophils % (Manual) 90 H 37.0-80.0 Band Neutrophils % (Manual) 0 Lymphocytes % (Manual) 2 L 10.0-50.0 Monocytes % (Manual) 8 0-12 Eosinophils % (Manual) 0 0-7 Basophils % (Manual) 0 0.0-2.0 Metamyelocytes % (manual) 0 Myelocytes % (Manual) 0 Promyelocytes % (Manual) 0 Blast Cells % (Manual) 0 Reactive Lymphocytes 0 Platelet Estimate Adequate Prothrombin Time 15.1 H 9.3-11.8 sec Prothrombin Time INR 1.48 H 0.9-1.15 Activated Partial Thromboplast Time 58.1 H 24.5-34.5 SEC Sodium Level 135 L 136-145 mmol/L Potassium Level 4.8 3.5-5.1 mmol/L Chloride Level 102 98-107 mmol/L Carbon Dioxide Level 22 20-31 mmol/L Anion Gap 11 5-15 Blood Urea Nitrogen 43 H 9-23 mg/dL Creatinine 2.85 H 0.700-1.30 mg/dL Glomerular Filtration Rate Calc 22 >90 mL/min BUN/Creatinine Ratio 15.1 10.0-20.0 Serum Glucose 101 74-106 mg/dL Calcium Level 9.0 8.7-10.4 mg/dL Magnesium Level 1.9 1.6-2.6 mg/dL Total Bilirubin 0.4 0.2-1.0 mg/dL Aspartate Amino Transferase (AST) 11 L 13-40 U/L Alanine Aminotransferase (ALT) < 9 7-40 U/L Alkaline Phosphatase 79 46-116 U/L B-Type Natriuretic Peptide 616.38 0-100 pg/mL Total Protein 7.0 5.7-8.2 g/dL Albumin 3.8 3.2-4.8 g/dL Assessment Acute kidney injury on Chronic kidney disease four hemodynamic mediated etiology in the setting of hypotension/pneumonia Chronic kidney disease four baseline---follows Acute on chronic hypoxic respiratory failure Atrial fibrillation recs Gentle IV Lasix given hypoxic events Can not give IV fluids given hypoxia Baseline GFR 29 We will follow closely Renally dose antibiotics to GFR Plan discussed with: Patient POLO NO MD Mar 31, 2025 16:22
[2025-03-31] MEDS: FUROSEMIDE 40 MG/4 ML VIAL IV ONE (16:30)
--- NOTE | 2025-03-31 16:50 | DVHPN2 ---
Progress Note - Dictate Date Seen: Mar 31, 2025 Medical Necessity Reason Pt with a Central, PICC or Fol: No vital signs Vital Sign Date Time Temp Pulse Resp B/P (MAP) Pulse Ox O2 Delivery O2 Flow Rate FiO2 03/31/25 15:00 85 17 109/57 (74) 03/31/25 13:00 97.6 93 97.6 03/31/25 06:25 Nasal Cannula 2.0 03/31/25 06:25 28 Total Intake and Output 03/30/25 03/30/25 03/31/25 15:00 23:00 07:00 Intake Total 580 ml 720 ml Output Total 600 ml Balance -20 ml 720 ml medications Current Medications Medications Dose Ordered Sig/Anjel Route Start Time Stop Time Status Last Admin Dose Admin Cefepime HCl 50 ml @ 12.5 mls/hr DAILY IV 03/30/25 10:00 Cancel Acetaminophen 325 mg Q4HP PRN PO 03/29/25 19:00 03/31/25 03:08 325 MG Morphine Sulfate 2 mg Q4HPRN PRN IV 03/29/25 19:00 Nitroglycerin 0.4 mg Q5MINP PRN SL 03/29/25 19:00 Hold Morphine Sulfate 2 mg Q30M PRN IV 03/29/25 19:00 Piperacillin Sod/ Tazobactam Sod 100 ml @ 25 mls/hr Q8HR@0100,0900,1700 IV 03/30/25 09:00 03/31/25 09:47 25 MLS/HR Apixaban 5 mg BID PO 03/30/25 10:00 Hold Atorvastatin Calcium 20 mg DAILY PO 03/30/25 10:00 03/31/25 09:48 20 MG Famotidine 10 mg DAILY PO 03/30/25 10:00 03/31/25 09:48 10 MG Gabapentin 300 mg DAILY PO 03/30/25 10:00 03/31/25 09:48 300 MG Montelukast Sodium 10 mg HS PO 03/30/25 22:00 03/30/25 21:48 10 MG Sildenafil Citrate 20 mg BID PO 03/30/25 10:00 03/31/25 09:48 20 MG Sotalol HCl 40 mg BID PO 03/30/25 10:00 03/31/25 09:50 40 MG Enoxaparin Sodium 100 mg DAILY SC 03/30/25 10:00 03/31/25 09:48 100 MG Albuterol 2.5 mg Q4HWA NEB 03/30/25 18:00 03/31/25 10:01 2.5 MG Doxycycline Hyclate 100 ml @ 50 mls/hr Q12H IV 03/30/25 22:00 03/31/25 10:26 50 MLS/HR Furosemide 40 mg DAILY IV 04/01/25 10:00 UNV laboratory and microbiology Laboratory Tests 03/31/25 08:55 Test 03/31/25 08:55 Range/Units Serum Glucose 146 H 74-106 mg/dL Assessment/Plan Acute exacerbation of COPD /trelegy Emphysema Multifocal pneumonia Pain Acute on chronic hypoxemic respiratory failure CKD Management plan Supportive care/supplemental O2 Titrate to keep O2 sats above 90% Incentive spirometry Albuterol Atrovent bronchodilators Antibiotics Deescalate based on culture results GI/DVT prophylaxis management per primary team Plan discussed with: Patient ELVI WASHINGTON MD Mar 31, 2025 16:50
--- NOTE | 2025-03-31 19:34 | DVHPN2 ---
Progress Note - Dictate Date Seen: Mar 31, 2025 Medical Necessity Reason Pt with a Central, PICC or Fol: No vital signs Vital Sign Date Time Temp Pulse Resp B/P (MAP) Pulse Ox O2 Delivery O2 Flow Rate FiO2 03/31/25 19:19 77 16 96 03/31/25 19:19 Nasal Cannula* 2 28 03/31/25 16:58 97.5 105/63 (77) 97.5 Total Intake and Output 03/30/25 03/30/25 03/31/25 15:00 23:00 07:00 Intake Total 580 ml 720 ml Output Total 600 ml Balance -20 ml 720 ml medications Current Medications Medications Dose Ordered Sig/Anjel Route Start Time Stop Time Status Last Admin Dose Admin Cefepime HCl 50 ml @ 12.5 mls/hr DAILY IV 03/30/25 10:00 Cancel Acetaminophen 325 mg Q4HP PRN PO 03/29/25 19:00 03/31/25 03:08 325 MG Morphine Sulfate 2 mg Q4HPRN PRN IV 03/29/25 19:00 Nitroglycerin 0.4 mg Q5MINP PRN SL 03/29/25 19:00 Hold Morphine Sulfate 2 mg Q30M PRN IV 03/29/25 19:00 Piperacillin Sod/ Tazobactam Sod 100 ml @ 25 mls/hr Q8HR@0100,0900,1700 IV 03/30/25 09:00 03/31/25 17:00 25 MLS/HR Apixaban 5 mg BID PO 03/30/25 10:00 Hold Atorvastatin Calcium 20 mg DAILY PO 03/30/25 10:00 03/31/25 09:48 20 MG Famotidine 10 mg DAILY PO 03/30/25 10:00 03/31/25 09:48 10 MG Gabapentin 300 mg DAILY PO 03/30/25 10:00 03/31/25 09:48 300 MG Montelukast Sodium 10 mg HS PO 03/30/25 22:00 03/30/25 21:48 10 MG Sildenafil Citrate 20 mg BID PO 03/30/25 10:00 03/31/25 09:48 20 MG Sotalol HCl 40 mg BID PO 03/30/25 10:00 03/31/25 09:50 40 MG Enoxaparin Sodium 100 mg DAILY SC 03/30/25 10:00 03/31/25 09:48 100 MG Albuterol 2.5 mg Q4HWA NEB 03/30/25 18:00 03/31/25 19:19 2.5 MG Doxycycline Hyclate 100 ml @ 50 mls/hr Q12H IV 03/30/25 22:00 03/31/25 10:26 50 MLS/HR Furosemide 40 mg DAILY IV 04/01/25 10:00 laboratory and microbiology Laboratory Tests 03/31/25 08:55 Test 03/31/25 08:55 Range/Units Serum Glucose 146 H 74-106 mg/dL Assessment/Plan Subjective Patient was admitted for gram positive pneumonia. Pneumonia is improving along with O2. Patient also had emphysema which is improving. Will continue current treatment. Medical History - Chronic kidney disease (CKD) stage V - Atrial fibrillation (AFib), persistent - Lumbar radiculopathy - Chronic obstructive pulmonary disease (COPD) - emphysema, on home oxygen Medications and Supplements - Home oxygen Social History - Substance Use: Home oxygen use for COPD-emphysema Review of Systems Respiratory: Positive for shortness of breath, difficulty breathing. Objective Vital Signs - Respiratory Rate: 85 breaths per minute - Oxygen Saturation: 85% Laboratory, Imaging, and Diagnostic Test Results - Chest X-ray: Left basal consolidation with small left pleural effusion - Oxygen saturation: 85% Assessment & Plan Gram-negative pneumonia Assessment: Patient presented with shortness of breath and difficulty breathing. Chest X-ray showed left basal consolidation with small left pleural effusion. White blood cell count was elevated at 25.4, indicating leukocytosis. These findings, along with the patient's acute respiratory failure and hypoxia (oxygen saturation of 85%), are consistent with gram-negative pneumonia. Plan: - Initiate IV antibiotics - Request pulmonary consultation - Monitor leukocytosis Acute respiratory failure Assessment: Patient presented with acute respiratory failure, likely secondary to pneumonia and exacerbation of underlying COPD. On presentation, patient had hypoxic respiration with oxygen saturation of 85%. Plan: - Admit patient for management of acute respiratory failure - Continue home oxygen therapy - Manage concurrently with pneumonia treatment Atrial fibrillation (persistent) Assessment: Patient has a history of atrial fibrillation, which is noted to be persistent. Case was discussed with grades 1 through 5 teacher, Dr. Isaih Brooks, who also evaluated the patient. Plan: - Continue current management as per grades 1 through 5 teacher recommendations Chronic Kidney Disease (CKD) Stage V Assessment: Patient has a history of CKD stage V. 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 Current presentation with respiratory symptoms and acute respiratory failure suggests an exacerbation of COPD. Plan: - Continue IV antibiotics - Consult with Dr. Larry Plan discussed with: Patient, Other JAIDEN SANTOS MD Mar 31, 2025 19:34
[2025-04-01] VITALS (15 sets, daily range): BP systolic 101–114; BP diastolic 61–74; PULSE 57–77; RESP 16–20; TEMP 97.1–98.3; O2SAT 95–100
--- NOTE | 2025-04-01 08:36 | DVHPN2 ---
Progress Note - Dictate Date Seen: Apr 01, 2025 Medical Necessity Reason Pt with a Central, PICC or Fol: No vital signs Vital Sign Date Time Temp Pulse Resp B/P (MAP) Pulse Ox O2 Delivery O2 Flow Rate FiO2 04/01/25 06:09 67 16 99 04/01/25 05:59 Nasal Cannula 3.0 04/01/25 05:59 32 04/01/25 05:00 97.7 101/61 (74) 97.7 Total Intake and Output 03/31/25 03/31/25 04/01/25 15:00 23:00 07:00 Intake Total 1000 ml 900 ml Output Total 1200 ml Balance -200 ml 900 ml medications Current Medications Medications Dose Ordered Sig/Anjel Route Start Time Stop Time Status Last Admin Dose Admin Cefepime HCl 50 ml @ 12.5 mls/hr DAILY IV 03/30/25 10:00 Cancel Acetaminophen 325 mg Q4HP PRN PO 03/29/25 19:00 03/31/25 03:08 325 MG Morphine Sulfate 2 mg Q4HPRN PRN IV 03/29/25 19:00 Nitroglycerin 0.4 mg Q5MINP PRN SL 03/29/25 19:00 Hold Morphine Sulfate 2 mg Q30M PRN IV 03/29/25 19:00 Piperacillin Sod/ Tazobactam Sod 100 ml @ 25 mls/hr Q8HR@0100,0900,1700 IV 03/30/25 09:00 04/01/25 04:17 25 MLS/HR Apixaban 5 mg BID PO 03/30/25 10:00 Hold Atorvastatin Calcium 20 mg DAILY PO 03/30/25 10:00 03/31/25 09:48 20 MG Famotidine 10 mg DAILY PO 03/30/25 10:00 03/31/25 09:48 10 MG Gabapentin 300 mg DAILY PO 03/30/25 10:00 03/31/25 09:48 300 MG Montelukast Sodium 10 mg HS PO 03/30/25 22:00 03/31/25 22:11 10 MG Sildenafil Citrate 20 mg BID PO 03/30/25 10:00 03/31/25 22:11 20 MG Sotalol HCl 40 mg BID PO 03/30/25 10:00 03/31/25 22:10 40 MG Enoxaparin Sodium 100 mg DAILY SC 03/30/25 10:00 03/31/25 09:48 100 MG Albuterol 2.5 mg Q4HWA NEB 03/30/25 18:00 04/01/25 05:59 2.5 MG Doxycycline Hyclate 100 ml @ 50 mls/hr Q12H IV 03/30/25 22:00 03/31/25 01:35 50 MLS/HR Furosemide 40 mg DAILY IV 04/01/25 10:00 laboratory and microbiology Laboratory Tests 03/31/25 08:55 Test 03/31/25 08:55 Range/Units Serum Glucose 146 H 74-106 mg/dL Assessment/Plan Patient is a 80-year-old gentleman who presented to the hospital for 2 days of shortness of breaths. It seems that oxygen saturation was 85-92% at home on room air. In emergency room it was 88%. Cardiology is involved for cardiac aspects of care. Patient is known to our practice from outside and before. Does have history of emphysema/COPD. Patient mentions poor appetite for around a week. Is found to be leukocytotic in emergency room. Past medical history includes COPD/emphysema, hyperlipidemia, lung nodule, anemia, CKD (GFR around 25-30), BPH, chronic pancreatitis, restless leg syndrome, lumbar radiculopathy, peripheral artery disease, atrial fibrillation (on Pradaxa and sotalol as outpatient), insomnia and old history of inguinal hernia. Echocardiogram of February 2025 (performed in the office) revealed preserved ejection fraction WBC: 25.4 - 23.6 - 24.3 Hemoglobin: 10.3 - 9.0 - 10.1 BNP: 616.38 - 626.62 Creatinine: 2.85 - 2.65 - 2.67 Potassium: 4.8 - 4.4 - 4.7 Troponin (high sensitive): 49- 39 - 24 Chest x-ray revealed: IMPRESSION: Left basilar consolidation with small left pleural effusion. CT of chest revealed: IMPRESSION: Left lower lobe airspace disease. Moderate left pleural effusion. Patchy airspace opacities in the right lung base may represent atelectasis. EKG revealed atrial fibrillation with RVR Tele reveals atrial fibrillation with RVR, later: NSR Echocardiogram revealed: Left ventricle: Left ventricle is normal-sized with normal systolic function. LVEF of 60-65%. There was no gross wall motion abnormality. Right ventricle was normal-sized with normal systolic function. Both atria were mildly dilated. Aortic valve: Aortic valve was trileaflet. Aortic leaflets were mildly dilated. Aortic sclerosis with no stenosis was seen. There was no aortic insufficiency. There was mild mitral regurgitation. There was [id number] tricuspid regurgitation. Pulmonary valve did not reveal any insufficiency. Right ventricular systolic pressure was assessed at 46 mm Hg. There was no pericardial effusion. There was IVC dilatation with normal respiratory variation. Patient is a 80-year-old gentleman who presented with shortness of breath and acute respiratory failure. Presentation is in favor of COPD exacerbation. Was found to have leukocytosis and pneumonia could have contributed to the clinical picture. Does have baseline history of atrial fibrillation and was found to have atrial fibrillation with RVR which could contributed clinical picture. Being followed by Pulmonary and Nephrology Pneumonia, community-acquired, multifocal COPD exacerbation Emphysema Atrial fibrillation CKD at baseline Anemia Cardiac suggestion for management: Manage on telemetry Follow-up electrolytes and kidney function tests and correct abnormalities Full anticoagulation (on Pradaxa as outpatient). You may give therapeutic Lovenox as inpatient for now Antibiotics as per Primary / Pulmonary Pulmonary following Further evaluation and management depends on the above and clinical course A total of 55 minutes was spent reviewing the patient record, examining the patient, making a diagnostic and therapeutic plan, discussing this plan with medical personnel, following up on diagnostic studies and following the patient for clinical stability excluding any and all procedures. At least 50% of this time was spent in direct, [id number] contact. Thank you for allowing me to participate in this patient's care. Further recommendations will depend on patient's clinical course. Please do not hesitate to contact me if you have any questions or concerns. This medical document was created using electronic medical record system with [employer] computerized dictation system. Although this document has been carefully reviewed, there may still be some phonetic and typographical errors. These areas are purely typographical due to the imperfection of the software programs, and do not reflect any compromise in the patient's medical care. Plan discussed with: Patient, Other (nurse) NAV DENSON MD Apr 01, 2025 08:36
[2025-04-01] MEDS: FUROSEMIDE 40 MG/4 ML VIAL IV SCH (09:25)
--- NOTE | 2025-04-01 12:58 | ECG ---
[facility] Test Date: 2025-03-29 Test Time: 10:19:05 Pat Name: AMBROSE MCKINNEY Department: ED Room: 0219T B Gender: M Water Trainer: CHANA : 1945 Requested By: ERIC LUCAS Order Number: [id number] Reading MD: Damion Nixon Measurements Intervals Bryan Rate: 98 P: 51 MD: 103 QRS: -11 QRSD: 87 T: 44 QT: 323 QTc: 413 Interpretive Statements Sinus rhythm Short MD interval Borderline low voltage, extremity leads RSR' in V1 or V2, right VCD or RVH Baseline wander in lead(s) V2 Electronically Signed On 04-05-2025 22:22:29 PDT by Damion Nixon Please click the below link to view image of tracing.
[2025-04-01 13:24] LABS: Hematocrit 36.9 % (41.0-53.0); Hemoglobin 12.3 g/dL (13.5-17.5); Mean Corpuscular Hemoglobin 33.8 pg (28.0-32.0); Mean Corpuscular Volume 101.2 fL (80.0-100.0); Nucleated Red Blood Cells % 0.0 %
[2025-04-01 13:30] LABS: Chloride 105 mmol/L (98-107); Potassium 4.4 mmol/L (3.5-5.1); Sodium 142 mmol/L (136-145)
[2025-04-01 13:31] LABS: Anion Gap 11 (5-15); Carbon Dioxide 26 mmol/L (20-31)
[2025-04-01 13:32] LABS: Calcium 9.5 mg/dL (8.7-10.4)
[2025-04-01 13:36] LABS: Glucose 104 mg/dL (74-106)
[2025-04-01 13:37] LABS: BUN/Creatinine Ratio 23.5 (10.0-20.0)
[2025-04-01 13:38] LABS: Blood Urea Nitrogen 66 mg/dL (9-23)
--- NOTE | 2025-04-01 14:04 | DVH ---
XY CHEST TWO VIEWS ROUTINE CLINICAL HISTORY: reeval COMPARISON: CT CHEST WITHOUT CONTRAST on DOS: 03/30/25, XY CHEST PORTABLE on DOS: 03/29/25, XY CHEST PO RTABLE on DOS: 03/29/25 TECHNIQUE: Frontal and lateral view of the chest was obtained FINDINGS: Lines and tubes: None Cardiomediastinal silhouette: normal Pulmonary vasculature: normal Lung expansion: normal Lung airspace: Left basilar consolidation with small left pleural effusion. Lung interstitium: normal Pleura: left effusion, small. Pneumothorax: no Bones: Unremarkable Other: no IMPRESSION: Left basilar consolidation with small left pleural effusion.
--- NOTE | 2025-04-01 15:15 | DVHPN2 ---
Progress Note - Dictate Date Seen: Apr 01, 2025 Medical Necessity Reason Pt with a Central, PICC or Fol: No vital signs Vital Sign Date Time Temp Pulse Resp B/P (MAP) Pulse Ox O2 Delivery O2 Flow Rate FiO2 04/01/25 14:23 64 16 100 04/01/25 14:17 Nasal Cannula 2.0 04/01/25 14:17 28 04/01/25 13:30 97.7 110/72 (85) 97.7 Total Intake and Output 03/31/25 03/31/25 04/01/25 15:00 23:00 07:00 Intake Total 1000 ml 900 ml Output Total 1200 ml Balance -200 ml 900 ml medications Current Medications Medications Dose Ordered Sig/Anjel Route Start Time Stop Time Status Last Admin Dose Admin Cefepime HCl 50 ml @ 12.5 mls/hr DAILY IV 03/30/25 10:00 Cancel Acetaminophen 325 mg Q4HP PRN PO 03/29/25 19:00 03/31/25 03:08 325 MG Morphine Sulfate 2 mg Q4HPRN PRN IV 03/29/25 19:00 Nitroglycerin 0.4 mg Q5MINP PRN SL 03/29/25 19:00 Hold Morphine Sulfate 2 mg Q30M PRN IV 03/29/25 19:00 Piperacillin Sod/ Tazobactam Sod 100 ml @ 25 mls/hr Q8HR@0100,0900,1700 IV 03/30/25 09:00 04/01/25 09:20 25 MLS/HR Apixaban 5 mg BID PO 03/30/25 10:00 Hold Atorvastatin Calcium 20 mg DAILY PO 03/30/25 10:00 04/01/25 09:24 20 MG Famotidine 10 mg DAILY PO 03/30/25 10:00 04/01/25 09:24 10 MG Gabapentin 300 mg DAILY PO 03/30/25 10:00 04/01/25 09:24 300 MG Montelukast Sodium 10 mg HS PO 03/30/25 22:00 03/31/25 22:11 10 MG Sildenafil Citrate 20 mg BID PO 03/30/25 10:00 04/01/25 09:25 20 MG Sotalol HCl 40 mg BID PO 03/30/25 10:00 04/01/25 09:24 40 MG Albuterol 2.5 mg Q4HWA BANNER 03/30/25 18:00 04/01/25 14:17 2.5 MG Doxycycline Hyclate 100 ml @ 50 mls/hr Q12H IV 03/30/25 22:00 04/01/25 09:21 50 MLS/HR Furosemide 40 mg DAILY IV 04/01/25 10:00 04/01/25 09:25 40 MG Enoxaparin Sodium 80 mg DAILY SC 04/02/25 10:00 laboratory and microbiology Laboratory Tests 04/01/25 13:09 Test 04/01/25 13:09 Range/Units Serum Glucose 104 74-106 mg/dL Assessment/Plan Acute exacerbation of COPD /trelegy Emphysema Multifocal pneumonia Pain Acute on chronic hypoxemic respiratory failure CKD Management plan Supportive care/supplemental O2 Titrate to keep O2 sats above 90% Incentive spirometry Albuterol Atrovent bronchodilators Antibiotics Deescalate based on culture results GI/DVT prophylaxis management per primary team ELVI WASHINGTON MD Apr 01, 2025 15:15
--- NOTE | 2025-04-01 17:10 | DVHPN2 ---
Progress Note Date Seen: Apr 01, 2025 Medical Necessity Reason Pt with a Central, PICC or Fol: No Subjective Patient reports: Other Review of Systems: RESPIRATORY:Abnormal Objective vital signs Vital Sign Date Time Temp Pulse Resp B/P (MAP) Pulse Ox O2 Delivery O2 Flow Rate FiO2 04/01/25 17:04 97.2 68 19 114/74 (87) 99 97.2 04/01/25 14:17 Nasal Cannula 2.0 04/01/25 14:17 28 Total Intake and Output 03/31/25 03/31/25 04/01/25 15:00 23:00 07:00 Intake Total 1000 ml 900 ml Output Total 1200 ml Balance -200 ml 900 ml medications Current Medications Medications Dose Ordered Sig/Anjel Route Start Time Stop Time Status Last Admin Dose Admin Cefepime HCl 50 ml @ 12.5 mls/hr DAILY IV 03/30/25 10:00 Cancel Acetaminophen 325 mg Q4HP PRN PO 03/29/25 19:00 03/31/25 03:08 325 MG Morphine Sulfate 2 mg Q4HPRN PRN IV 03/29/25 19:00 Nitroglycerin 0.4 mg Q5MINP PRN SL 03/29/25 19:00 Hold Morphine Sulfate 2 mg Q30M PRN IV 03/29/25 19:00 Piperacillin Sod/ Tazobactam Sod 100 ml @ 25 mls/hr Q8HR@0100,0900,1700 IV 03/30/25 09:00 04/01/25 09:20 25 MLS/HR Apixaban 5 mg BID PO 03/30/25 10:00 Hold Atorvastatin Calcium 20 mg DAILY PO 03/30/25 10:00 04/01/25 09:24 20 MG Famotidine 10 mg DAILY PO 03/30/25 10:00 04/01/25 09:24 10 MG Gabapentin 300 mg DAILY PO 03/30/25 10:00 04/01/25 09:24 300 MG Montelukast Sodium 10 mg HS PO 03/30/25 22:00 03/31/25 22:11 10 MG Sildenafil Citrate 20 mg BID PO 03/30/25 10:00 04/01/25 09:25 20 MG Sotalol HCl 40 mg BID PO 03/30/25 10:00 04/01/25 09:24 40 MG Albuterol 2.5 mg Q4HWA NEB 03/30/25 18:00 04/01/25 14:17 2.5 MG Doxycycline Hyclate 100 ml @ 50 mls/hr Q12H IV 03/30/25 22:00 04/01/25 09:21 50 MLS/HR Enoxaparin Sodium 80 mg DAILY SC 04/02/25 10:00 Furosemide 20 mg DAILY IV 04/02/25 10:00 UNV Examination: GENERAL:Normal, LUNGS:Abnormal, MSK:Normal, NEURO:Normal laboratory and microbiology Laboratory Tests 04/01/25 13:09 Test 04/01/25 13:09 Range/Units Serum Glucose 104 74-106 mg/dL Microbiology Date/Time Source Procedure Growth Status 03/29/25 13:30 Blood Blood Culture - Preliminary NO GROWTH AFTER 72 HOURS OF INCUBATION. Resulted Problem List/Assessment/Plan Problem List/Assessment/Plan Acute kidney injury on Chronic kidney disease four hemodynamic mediated etiology in the setting of hypotension/pneumonia Chronic kidney disease four baseline---follows dr.shankar Pickens on chronic hypoxic respiratory failure Atrial fibrillation recs ivf for 1 L reduce lasix dose Plan discussed with: Patient My Orders My Orders Orders - POLO NO MD Procedure Category Date Status Time Furosemide Injection PHA 04/02/25 Logged (Lasix Injection) 10:00 Sodium Chloride 0.9% PHA 04/01/25 Logged 17:15 POLO NO MD Apr 01, 2025 17:10
[2025-04-01] MEDS: SODIUM CHLORIDE 0.9% 1,000 ML IV ONE (17:26)
--- NOTE | 2025-04-01 21:14 | DVHPN2 ---
Progress Note - Dictate Date Seen: Apr 01, 2025 Medical Necessity Reason Pt with a Central, PICC or Fol: No vital signs Vital Sign Date Time Temp Pulse Resp B/P (MAP) Pulse Ox O2 Delivery O2 Flow Rate FiO2 04/01/25 18:28 70 16 100 04/01/25 18:23 Nasal Cannula* 3 32 04/01/25 17:04 97.2 114/74 (87) 97.2 Total Intake and Output 03/31/25 03/31/25 04/01/25 15:00 23:00 07:00 Intake Total 1000 ml 900 ml Output Total 1200 ml Balance -200 ml 900 ml medications Current Medications Medications Dose Ordered Sig/Anjel Route Start Time Stop Time Status Last Admin Dose Admin Cefepime HCl 50 ml @ 12.5 mls/hr DAILY IV 03/30/25 10:00 Cancel Acetaminophen 325 mg Q4HP PRN PO 03/29/25 19:00 03/31/25 03:08 325 MG Morphine Sulfate 2 mg Q4HPRN PRN IV 03/29/25 19:00 Nitroglycerin 0.4 mg Q5MINP PRN SL 03/29/25 19:00 Hold Morphine Sulfate 2 mg Q30M PRN IV 03/29/25 19:00 Piperacillin Sod/ Tazobactam Sod 100 ml @ 25 mls/hr Q8HR@0100,0900,1700 IV 03/30/25 09:00 04/01/25 18:19 25 MLS/HR Apixaban 5 mg BID PO 03/30/25 10:00 Hold Atorvastatin Calcium 20 mg DAILY PO 03/30/25 10:00 04/01/25 09:24 20 MG Famotidine 10 mg DAILY PO 03/30/25 10:00 04/01/25 09:24 10 MG Gabapentin 300 mg DAILY PO 03/30/25 10:00 04/01/25 09:24 300 MG Montelukast Sodium 10 mg HS PO 03/30/25 22:00 03/31/25 22:11 10 MG Sildenafil Citrate 20 mg BID PO 03/30/25 10:00 04/01/25 09:25 20 MG Sotalol HCl 40 mg BID PO 03/30/25 10:00 04/01/25 09:24 40 MG Albuterol 2.5 mg Q4HWA NEB 03/30/25 18:00 04/01/25 18:23 2.5 MG Doxycycline Hyclate 100 ml @ 50 mls/hr Q12H IV 03/30/25 22:00 04/01/25 09:21 50 MLS/HR Enoxaparin Sodium 80 mg DAILY SC 04/02/25 10:00 Furosemide 20 mg DAILY IV 04/02/25 10:00 Saccharomyces Boulardii 250 mg DAILY PO 04/02/25 10:00 laboratory and microbiology Laboratory Tests 04/01/25 13:09 Test 04/01/25 13:09 Range/Units Serum Glucose 104 74-106 mg/dL Assessment/Plan Subjective Patient had diarrhea today. Will rule out C. diff. Medical History - Chronic kidney disease (CKD) stage V - Atrial fibrillation (AFib), persistent - Lumbar radiculopathy - Chronic obstructive pulmonary disease (COPD) - emphysema, on home oxygen Medications and Supplements - Home oxygen Social History - Substance Use: Home oxygen use for COPD-emphysema Review of Systems Respiratory: Positive for shortness of breath, difficulty breathing. Objective Vital Signs - Respiratory Rate: 85 breaths per minute - Oxygen Saturation: 85% Laboratory, Imaging, and Diagnostic Test Results - Chest X-ray: Left basal consolidation with small left pleural effusion - Oxygen saturation: 85% Assessment & Plan Gram-negative pneumonia Assessment: Patient presented with shortness of breath and difficulty breathing. Chest X-ray showed left basal consolidation with small left pleural effusion. White blood cell count was elevated at 25.4, indicating leukocytosis. These findings, along with the patient's acute respiratory failure and hypoxia (oxygen saturation of 85%), are consistent with gram-negative pneumonia. Plan: - Initiate IV antibiotics - Request pulmonary consultation - Monitor leukocytosis Acute respiratory failure Assessment: Patient presented with acute respiratory failure, likely secondary to pneumonia and exacerbation of underlying COPD. On presentation, patient had hypoxic respiration with oxygen saturation of 85%. Plan: - Admit patient for management of acute respiratory failure - Continue home oxygen therapy - Manage concurrently with pneumonia treatment Atrial fibrillation (persistent) Assessment: Patient has a history of atrial fibrillation, which is noted to be persistent. Case was discussed with public health social worker, Dr. Isiah Brooks, who also evaluated the patient. Plan: - Continue current management as per public health social worker recommendations Chronic Kidney Disease (CKD) Stage V Assessment: Patient has a history of CKD stage V. 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 Current presentation with respiratory symptoms and acute respiratory failure suggests an exacerbation of COPD. Plan: - Continue IV antibiotics - Consult with Dr. Larry Plan discussed with: Patient, Other JAIDEN SANTOS MD Apr 01, 2025 21:14
[2025-04-02] VITALS (17 sets, daily range): BP systolic 98–131; BP diastolic 52–86; PULSE 70–90; RESP 16–22; TEMP 97.4–98.5; O2SAT 93–100
--- NOTE | 2025-04-02 08:04 | DVHPN2 ---
Progress Note - Dictate Date Seen: Apr 02, 2025 Medical Necessity Reason Pt with a Central, PICC or Fol: No vital signs Vital Sign Date Time Temp Pulse Resp B/P (MAP) Pulse Ox O2 Delivery O2 Flow Rate FiO2 04/02/25 07:12 88 19 99 04/02/25 07:06 Nasal Cannula 2.0 04/02/25 07:06 28 04/02/25 05:00 97.4 120/65 (83) 97.4 Total Intake and Output 04/01/25 04/01/25 04/02/25 15:00 23:00 07:00 Intake Total 200 ml 400 ml 575 ml Output Total 760 ml Balance 200 ml -360 ml 575 ml medications Current Medications Medications Dose Ordered Sig/Anjel Route Start Time Stop Time Status Last Admin Dose Admin Cefepime HCl 50 ml @ 12.5 mls/hr DAILY IV 03/30/25 10:00 Cancel Acetaminophen 325 mg Q4HP PRN PO 03/29/25 19:00 03/31/25 03:08 325 MG Morphine Sulfate 2 mg Q4HPRN PRN IV 03/29/25 19:00 Nitroglycerin 0.4 mg Q5MINP PRN SL 03/29/25 19:00 Hold Morphine Sulfate 2 mg Q30M PRN IV 03/29/25 19:00 Piperacillin Sod/ Tazobactam Sod 100 ml @ 25 mls/hr Q8HR@0100,0900,1700 IV 03/30/25 09:00 04/02/25 02:12 25 MLS/HR Apixaban 5 mg BID PO 03/30/25 10:00 Hold Atorvastatin Calcium 20 mg DAILY PO 03/30/25 10:00 04/01/25 09:24 20 MG Famotidine 10 mg DAILY PO 03/30/25 10:00 04/01/25 09:24 10 MG Gabapentin 300 mg DAILY PO 03/30/25 10:00 04/01/25 09:24 300 MG Montelukast Sodium 10 mg HS PO 03/30/25 22:00 04/01/25 21:21 10 MG Sildenafil Citrate 20 mg BID PO 03/30/25 10:00 04/01/25 21:23 20 MG Sotalol HCl 40 mg BID PO 03/30/25 10:00 04/01/25 09:24 40 MG Albuterol 2.5 mg Q4HWA NEB 03/30/25 18:00 04/02/25 07:06 2.5 MG Doxycycline Hyclate 100 ml @ 50 mls/hr Q12H IV 03/30/25 22:00 04/01/25 23:57 50 MLS/HR Enoxaparin Sodium 80 mg DAILY SC 04/02/25 10:00 Furosemide 20 mg DAILY IV 04/02/25 10:00 Saccharomyces Boulardii 250 mg DAILY PO 04/02/25 10:00 laboratory and microbiology Laboratory Tests 04/01/25 13:09 Test 04/01/25 13:09 Range/Units Serum Glucose 104 74-106 mg/dL Assessment/Plan Patient is a 80-year-old gentleman who presented to the hospital for 2 days of shortness of breaths. It seems that oxygen saturation was 85-92% at home on room air. In emergency room it was 88%. Cardiology is involved for cardiac aspects of care. Patient is known to our practice from outside and before. Does have history of emphysema/COPD. Patient mentions poor appetite for around a week. Is found to be leukocytotic in emergency room. Past medical history includes COPD/emphysema, hyperlipidemia, lung nodule, anemia, CKD (GFR around 25-30), BPH, chronic pancreatitis, restless leg syndrome, lumbar radiculopathy, peripheral artery disease, atrial fibrillation (on Pradaxa and sotalol as outpatient), insomnia and old history of inguinal hernia. Echocardiogram of February 2025 (performed in the office) revealed preserved ejection fraction WBC: 25.4 - 23.6 - 24.3 - 14.9 Hemoglobin: 10.3 - 9.0 - 10.1 - 12.3 BNP: 616.38 - 626.62 Creatinine: 2.85 - 2.65 - 2.67 - 2.81 Potassium: 4.8 - 4.4 - 4.7 - 4.4 Troponin (high sensitive): 49- 39 - 24 Chest x-ray revealed: IMPRESSION: Left basilar consolidation with small left pleural effusion. Repeat chest xry revealed: IMPRESSION: Left basilar consolidation with small left pleural effusion. CT of chest revealed: IMPRESSION: Left lower lobe airspace disease. Moderate left pleural effusion. Patchy airspace opacities in the right lung base may represent atelectasis. EKG revealed atrial fibrillation with RVR Tele reveals atrial fibrillation with RVR, later: NSR Echocardiogram revealed: Left ventricle: Left ventricle is normal-sized with normal systolic function. LVEF of 60-65%. There was no gross wall motion abnormality. Right ventricle was normal-sized with normal systolic function. Both atria were mildly dilated. Aortic valve: Aortic valve was trileaflet. Aortic leaflets were mildly dilated. Aortic sclerosis with no stenosis was seen. There was no aortic insufficiency. There was mild mitral regurgitation. There was [id number] tricuspid regurgitation. Pulmonary valve did not reveal any insufficiency. Right ventricular systolic pressure was assessed at 46 mm Hg. There was no pericardial effusion. There was IVC dilatation with normal respiratory variation. Patient is a 80-year-old gentleman who presented with shortness of breath and acute respiratory failure. Presentation is in favor of COPD exacerbation. Was found to have leukocytosis and pneumonia could have contributed to the clinical picture. Does have baseline history of atrial fibrillation and was found to have atrial fibrillation with RVR which could contributed clinical picture. Being followed by Pulmonary and Nephrology Pneumonia, community-acquired, multifocal COPD exacerbation Emphysema Atrial fibrillation CKD at baseline Anemia Cardiac suggestion for management: Manage on telemetry Follow-up electrolytes and kidney function tests and correct abnormalities Full anticoagulation (on Pradaxa as outpatient). You may give therapeutic Lovenox as inpatient for now Antibiotics as per Primary / Pulmonary Pulmonary following Further evaluation and management depends on the above and clinical course A total of 55 minutes was spent reviewing the patient record, examining the patient, making a diagnostic and therapeutic plan, discussing this plan with medical personnel, following up on diagnostic studies and following the patient for clinical stability excluding any and all procedures. At least 50% of this time was spent in direct, [id number] contact. Thank you for allowing me to participate in this patient's care. Further recommendations will depend on patient's clinical course. Please do not hesitate to contact me if you have any questions or concerns. This medical document was created using electronic medical record system with [employer] dictation system. Although this document has been carefully reviewed, there may still be some phonetic and typographical errors. These areas are purely typographical due to the imperfection of the software programs, and do not reflect any compromise in the patient's medical care. Plan discussed with: Patient, Other (nurse) NAV DENSON MD Apr 02, 2025 08:04
[2025-04-02] MEDS: FLORASTOR (S. BOULARDII) 250 MG CAP PO SCH (09:14)
[2025-04-02] MEDS: ENOXAPARIN SOD 80 MG/0.8ML SYRINGE SC SCH (09:15)
[2025-04-02] MEDS: FUROSEMIDE 40 MG/4 ML VIAL IV SCH (09:16)
--- NOTE | 2025-04-02 09:59 | DVHPN2 ---
Progress Note Date Seen: Apr 02, 2025 Medical Necessity Reason Pt with a Central, PICC or Fol: No Subjective Patient reports: Other (diarrhoea) Review of Systems: GI:Abnormal Objective vital signs Vital Sign Date Time Temp Pulse Resp B/P (MAP) Pulse Ox O2 Delivery O2 Flow Rate FiO2 04/02/25 09:16 124/77 04/02/25 09:15 76 04/02/25 08:53 97.8 16 94 97.8 04/02/25 07:06 Nasal Cannula 2.0 04/02/25 07:06 28 Total Intake and Output 04/01/25 04/01/25 04/02/25 15:00 23:00 07:00 Intake Total 200 ml 400 ml 575 ml Output Total 760 ml Balance 200 ml -360 ml 575 ml medications Current Medications Medications Dose Ordered Sig/Anjel Route Start Time Stop Time Status Last Admin Dose Admin Cefepime HCl 50 ml @ 12.5 mls/hr DAILY IV 03/30/25 10:00 Cancel Acetaminophen 325 mg Q4HP PRN PO 03/29/25 19:00 03/31/25 03:08 325 MG Morphine Sulfate 2 mg Q4HPRN PRN IV 03/29/25 19:00 Nitroglycerin 0.4 mg Q5MINP PRN SL 03/29/25 19:00 Hold Morphine Sulfate 2 mg Q30M PRN IV 03/29/25 19:00 Piperacillin Sod/ Tazobactam Sod 100 ml @ 25 mls/hr Q8HR@0100,0900,1700 IV 03/30/25 09:00 04/02/25 02:12 25 MLS/HR Apixaban 5 mg BID PO 03/30/25 10:00 Hold Atorvastatin Calcium 20 mg DAILY PO 03/30/25 10:00 04/02/25 09:14 20 MG Famotidine 10 mg DAILY PO 03/30/25 10:00 04/02/25 09:12 10 MG Gabapentin 300 mg DAILY PO 03/30/25 10:00 04/02/25 09:13 300 MG Montelukast Sodium 10 mg HS PO 03/30/25 22:00 04/01/25 21:21 10 MG Sildenafil Citrate 20 mg BID PO 03/30/25 10:00 04/02/25 09:13 20 MG Sotalol HCl 40 mg BID PO 03/30/25 10:00 04/02/25 09:15 40 MG Albuterol 2.5 mg Q4HWA NEB 03/30/25 18:00 04/02/25 07:06 2.5 MG Doxycycline Hyclate 100 ml @ 50 mls/hr Q12H IV 03/30/25 22:00 04/02/25 09:09 50 MLS/HR Enoxaparin Sodium 80 mg DAILY SC 04/02/25 10:00 04/02/25 09:15 80 MG Furosemide 20 mg DAILY IV 04/02/25 10:00 04/02/25 09:16 20 MG Saccharomyces Boulardii 250 mg DAILY PO 04/02/25 10:00 04/02/25 09:14 250 MG Examination: GENERAL:Normal, MSK:Abnormal, NEURO:Normal laboratory and microbiology Laboratory Tests 04/01/25 13:09 Test 04/01/25 13:09 Range/Units Serum Glucose 104 74-106 mg/dL Microbiology Date/Time Source Procedure Growth Status 03/29/25 13:30 Blood Blood Culture - Preliminary NO GROWTH AFTER 72 HOURS OF INCUBATION. Resulted Problem List/Assessment/Plan Problem List/Assessment/Plan Acute kidney injury on Chronic kidney disease four hemodynamic mediated etiology in the setting of hypotension/pneumonia Chronic kidney disease four baseline---follows dr.shankar Pickens on chronic hypoxic respiratory failure Atrial fibrillation diarrhoea recs ivf for 1 L continue lasix hold for today labs pending Plan discussed with: Patient My Orders My Orders Orders - POLO NO MD Procedure Category Date Status Time Furosemide Injection PHA 04/02/25 In Process (Lasix Injection) 10:00 Basic Metabolic Panel LAB 04/02/25 Transmitted 09:55 Basic Metabolic Panel LAB 04/03/25 Verified 05:00 Basic Metabolic Panel LAB 04/04/25 Verified 05:00 Basic Metabolic Panel LAB 04/05/25 Verified 05:00 Basic Metabolic Panel LAB 04/06/25 Verified 05:00 Basic Metabolic Panel LAB 04/07/25 Verified 05:00 Basic Metabolic Panel LAB 04/08/25 Verified 05:00 Basic Metabolic Panel LAB 04/09/25 Verified 05:00 NS PHA 04/02/25 Verified 10:00 POLO NO MD Apr 02, 2025 09:59
[2025-04-02] MEDS: SODIUM CHLORIDE 0.9% 1,000 ML IV SCH (10:49)
[2025-04-02 11:55] LABS: Base Excess -1.9 mmol/L (-2.0-3.0)
[2025-04-02 14:33] LABS: Base Excess -3.0 mmol/L (-2.0-3.0)
[2025-04-02 14:38] LABS: Chloride 106 mmol/L (98-107); Potassium 3.9 mmol/L (3.5-5.1); Sodium 144 mmol/L (136-145)
[2025-04-02 14:39] LABS: Anion Gap 11 (5-15); Carbon Dioxide 27 mmol/L (20-31)
[2025-04-02 14:40] LABS: Calcium 8.5 mg/dL (8.7-10.4)
[2025-04-02 14:44] LABS: BUN/Creatinine Ratio 24.4 (10.0-20.0); Glucose 103 mg/dL (74-106)
[2025-04-02 14:45] LABS: Blood Urea Nitrogen 64 mg/dL (9-23)
--- NOTE | 2025-04-02 15:13 | DVH ---
CHEST RADIOGRAPH Indication: PLUERAL EFFUSION Technique: Single frontal view of the chest was obtained COMPARISON: XY CHEST TWO VIEWS ROUTINE on DOS: 04/01/25, CT CHEST WITHOUT CONTRAST on DOS: 03/30/25, XY CHEST PORTABLE on DOS: 03/29/25 FINDINGS: Lines and Tubes: None Lungs: Mildly progressive consolidative features of left basilar pulmonary airspace disease. The righ t lung is clear. Pleura: No definite effusion. No pneumothorax. Cardiomediastinal contours: Unremarkable Bones: Unremarkable IMPRESSION: 1. Mild interval progression of left basilar pulmonary airspace disease with consolidative features.
--- NOTE | 2025-04-02 19:36 | DVHPN2 ---
Progress Note Date Seen: Apr 02, 2025 Medical Necessity Reason Pt with a Central, PICC or Fol: No Subjective Review of Systems: CVS:Normal, RESPIRATORY:Abnormal (SOB) Objective vital signs Vital Sign Date Time Temp Pulse Resp B/P (MAP) Pulse Ox O2 Delivery O2 Flow Rate FiO2 04/02/25 18:28 78 22 97 04/02/25 18:22 Nasal Cannula* 2 28 04/02/25 17:00 98.3 131/62 (85) 98.3 Total Intake and Output 04/01/25 04/01/25 04/02/25 15:00 23:00 07:00 Intake Total 200 ml 400 ml 575 ml Output Total 760 ml Balance 200 ml -360 ml 575 ml medications Current Medications Medications Dose Ordered Sig/Anjel Route Start Time Stop Time Status Last Admin Dose Admin Cefepime HCl 50 ml @ 12.5 mls/hr DAILY IV 03/30/25 10:00 Cancel Acetaminophen 325 mg Q4HP PRN PO 03/29/25 19:00 03/31/25 03:08 325 MG Morphine Sulfate 2 mg Q4HPRN PRN IV 03/29/25 19:00 Nitroglycerin 0.4 mg Q5MINP PRN SL 03/29/25 19:00 Hold Morphine Sulfate 2 mg Q30M PRN IV 03/29/25 19:00 Piperacillin Sod/ Tazobactam Sod 100 ml @ 25 mls/hr Q8HR@0100,0900,1700 IV 03/30/25 09:00 04/02/25 17:01 25 MLS/HR Apixaban 5 mg BID PO 03/30/25 10:00 Hold Atorvastatin Calcium 20 mg DAILY PO 03/30/25 10:00 04/02/25 09:14 20 MG Famotidine 10 mg DAILY PO 03/30/25 10:00 04/02/25 09:12 10 MG Gabapentin 300 mg DAILY PO 03/30/25 10:00 04/02/25 09:13 300 MG Montelukast Sodium 10 mg HS PO 03/30/25 22:00 04/01/25 21:21 10 MG Sildenafil Citrate 20 mg BID PO 03/30/25 10:00 04/02/25 09:13 20 MG Sotalol HCl 40 mg BID PO 03/30/25 10:00 04/02/25 09:15 40 MG Albuterol 2.5 mg Q4HWA NEB 03/30/25 18:00 04/02/25 18:22 2.5 MG Doxycycline Hyclate 100 ml @ 50 mls/hr Q12H IV 03/30/25 22:00 04/02/25 09:09 50 MLS/HR Enoxaparin Sodium 80 mg DAILY SC 04/02/25 10:00 04/02/25 09:15 80 MG Saccharomyces Boulardii 250 mg DAILY PO 04/02/25 10:00 04/02/25 09:14 250 MG Sodium Chloride 1,000 ml @ 75 mls/hr [id number] IV 04/02/25 10:00 04/02/25 10:49 75 MLS/HR Examination: GENERAL:Normal, LUNGS:Normal, CVS:Normal, ABDOMEN:Normal, SKIN:Normal, NEURO:Normal laboratory and microbiology Laboratory Tests 04/02/25 14:10 04/01/25 13:09 Test 04/02/25 14:10 Range/Units Serum Glucose 103 74-106 mg/dL Microbiology Date/Time Source Procedure Growth Status 04/02/25 01:33 Stool Clostridium difficile Toxin Assay - Final Complete 03/29/25 13:30 Blood Blood Culture - Preliminary NO GROWTH AFTER 72 HOURS OF INCUBATION. Resulted Labs and/or images reviewed: Labs reviewed by me, Image(s) reviewed by me Problem List/Assessment/Plan Problem List/Assessment/Plan The patient was admitted for acute hypoxic respiratory failure. The respiratory failure is believed to be multifactorial, primarily due to gram-negative pneumonia, for which he received IV antibiotics. Currently, the patient remains on Zosyn and doxycycline for his pneumonia. He is experiencing a COPD exacerbation in addition to his pneumonia. To manage his respiratory symptoms, he has been receiving Med lisa treatments. His respiratory status is described as stable, though he requires 2 liters of oxygen via nasal cannula. The patient developed acute kidney injury superimposed on chronic kidney disease and was evaluated by a preassembler and inspector. His baseline kidney function is consistent with CKD stage 4. The patient experienced an episode of diarrhea yesterday, but testing for C. difficile infection came back negative. Despite these complications, Mr. Garnett is reported to be clinically stable and is being considered for discharge tomorrow with home oxygen. Shadi Garnett is a patient with a history of COPD and emphysema, admitted for acute hypoxic respiratory failure likely due to gram-negative pneumonia and COPD exacerbation, also presenting with chronic persistent atrial fibrillation and chronic kidney disease. Acute Hypoxic Respiratory Failure Assessment: Patient admitted for acute hypoxic respiratory failure, likely multifactorial in etiology. Primary causes include gram-negative pneumonia and COPD exacerbation. Patient has an underlying history of emphysema. Currently, the patient is on 2 liters of nasal cannula oxygen. Arterial blood gas shows PaO2 of 50. Chest x-ray today revealed mild interval progression of left vascular pulmonary airspace disease with consolidated features. Patient has been receiving MedMed treatments and is currently on Zosyn and doxycycline for antibiotic coverage. Plan: - Continue Zosyn and doxycycline - Continue oxygen therapy via 2 liters nasal cannula - Continue Med lisa treatments - Arrange for home oxygen - Order DME equipment - Consult social research assistant - Plan for possible discharge tomorrow with home oxygen Chronic Persistent Atrial Fibrillation Assessment: Patient has a history of chronic persistent atrial fibrillation. He was seen by his pneumatic press hand, Dr. Brooks, during this admission. Currently on anticoagulation therapy. Plan: - Continue full-dose Lovenox - Continue Eliquis 5 mg BID Chronic Kidney Disease Assessment: Patient has chronic kidney disease stage 4 as baseline. During this admission, he experienced acute kidney injury superimposed on CKD. He was evaluated by a preassembler and inspector. Current lab values show GFR of 24 and creatinine of 2.62. Plan: - Continue monitoring renal function Diarrhea Assessment: Patient experienced diarrhea yesterday. C. difficile test came back negative. Plan: - Monitor for resolution of diarrhea Plan discussed with: Patient My Orders My Orders Orders - TAMARA COLLIER Procedure Category Date Status Time Chest Portable XY 04/02/25 Resulted 10:40 Abg W/ Co-Ox RT 04/02/25 Logged 11:02 Abg W/ Co-Ox RT 04/02/25 Logged 14:00 * Game Author CONS 04/02/25 Transmitted Consult Dietary Evaluation Review Comments: Cardiac Renal diet with 62 g protein restriction Expected Outcomes/Goals: Prevent uremic syndrome. Date of Service: Apr 02, 2025 Billing Provider: JAIDEN SANTOS MD Common Visit Codes: [id number] INP/OBS CARE (MOD) TAMARA COLLIER Apr 02, 2025 19:36
[2025-04-03] VITALS (14 sets, daily range): BP systolic 102–149; BP diastolic 56–81; PULSE 70–95; RESP 17–20; TEMP 36.2; O2SAT 84–98
[2025-04-03 07:02] LABS: Calcium 8.9 mg/dL (8.7-10.4); Potassium 3.9 mmol/L (3.5-5.1); Sodium 144 mmol/L (136-145)
[2025-04-03 07:03] LABS: Anion Gap 11 (5-15); Carbon Dioxide 26 mmol/L (20-31)
[2025-04-03 07:08] LABS: BUN/Creatinine Ratio 20.7 (10.0-20.0)
[2025-04-03 07:14] LABS: Blood Urea Nitrogen 50 mg/dL (9-23); Chloride 107 mmol/L (98-107); Glucose 111 mg/dL (74-106)
--- NOTE | 2025-04-03 07:47 | DVHINCON2 ---
Date of service: Apr 02, 2025 Family History: Cerebrovascular accident (CVA) G8 FATHER FH: kidney failure G8 MOTHER Allergies: Coded Allergies: NO KNOWN ALLERGIES (Unverified , 06/05/10) Home Meds Reported Medications Albuterol Sulfate (Albuterol Sulfate Hfa) 108 Mcg/Act Aer, INH Q4HP PRN for SHORTNESS OF BREATH 03/30/25 Famotidine (PEPCID TABLET) 20 Mg Tb, 10 MG PO DAILY, TAB 03/30/25 Hydrocodone-Acetaminophen (Hydrocodone/Acetaminophen 5-325 mg) 1 Tab Tab, 1 TAB PO Q8HPRN 03/30/25 Ensifentrine (Ohtuvayre) 3 Mg/2.5 Ml Nani, 2.5 ML PO DAILY 03/30/25 Frajyydausl-Cwkztvhzwfgt-Pvwtc (Trelegy Ellipta 100-62.5-25 Mcg/INH) 1 Aer Aer, 1 AER IN, AER 10/08/24 Gabapentin (Gabapentin) 300 Mg Cap, 300 MG PO for 30 Days, MG 10/08/24 Zolpidem Tartrate (Zolpidem Tartrate) 10 Mg Tab, 1 TAB PO, #30 TAB 2 Refills 10/08/24 Dabigatran Etexilate Mesylate (Pradaxa) 150 Mg Cap, 1 CAP PO BID, #180 CAP 1 Refill 10/08/24 Montelukast Sodium (MONTELUKAST SODIUM) 10 Mg Tab, 10 MG PO HS, TAB 10/08/24 Sildenafil Citrate (Sildenafil Citrate) 20 Mg Tab, 20 MG PO BID, TAB 10/08/24 Alfuzosin Hydrochloride (ALFUZOSIN HCL ER) 10 Mg Tab, 10 MG PO DAILY, TAB 10/08/24 Sotalol Hcl (Sotalol Hcl) 80 Mg Tab, 40 MG PO BID, TAB 10/08/24 Pantoprazole Sodium Sesquihydr (Protonix) 40 Mg Tab, 40 MG PO DAILY, #30 TAB 10/08/24 Pramipexole Dihydrochloride (Pramipexole Dihydrochlori) 0.75 Mg Tab, 0.125 MG PO, TAB 10/08/24 Atorvastatin Calcium (ATORVASTATIN CALCIUM) 20 Mg Tab, 1 TAB PO DAILY, #30 TAB 5 Refills 10/08/24 Current Medications Current Medications Medications (Trade) Dose Ordered Sig/Anjel Route PRN Reason Start Time Stop Time Status Last Admin Enoxaparin Sodium (Lovenox) 80 mg DAILY SC 04/02/25 10:00 04/02/25 09:15 Furosemide (Lasix Injection) 20 mg DAILY IV 04/02/25 10:00 04/02/25 10:00 DC 04/02/25 09:16 Saccharomyces Boulardii (Florastor) 250 mg DAILY PO 04/02/25 10:00 04/02/25 09:14 Sodium Chloride 1,000 ml @ 75 mls/hr [id number] IV 04/02/25 10:00 04/02/25 10:49 Vital Signs Vital Signs Date Time Temp Pulse Resp B/P (MAP) Pulse Ox O2 Delivery O2 Flow Rate FiO2 04/03/25 05:48 83 18 98 04/03/25 05:38 Nasal Cannula* 3 32 04/03/25 05:00 98.3 149/56 (87) 98.3 Labs/Diagnostic Data Labs Test 04/03/25 06:02 04/02/25 14:26 04/01/25 13:09 03/31/25 08:55 Range/Units Sodium Level 144 136-145 mmol/L Potassium Level 3.9 3.5-5.1 mmol/L Chloride Level 107 98-107 mmol/L Carbon Dioxide Level 26 20-31 mmol/L Anion Gap 11 5-15 Blood Urea Nitrogen 50 #H 9-23 mg/dL Creatinine 2.42 H 0.700-1.30 mg/dL Glomerular Filtration Rate Calc 27 >90 mL/min BUN/Creatinine Ratio 20.7 H 10.0-20.0 Serum Glucose 111 H 74-106 mg/dL Calcium Level 8.9 8.7-10.4 mg/dL Blood Gas Specimen Type Arterial Blood Gas Sample Site Right radial Blood Gas Patient Temperature 37.0 Arterial Blood Date Drawn [id number] Arterial Blood pH 7.386 7.350-7.450 Arterial Blood Partial Pressure CO2 36.8 35.0-48.0 mmHg Arterial Blood Partial Pressure O2 50.0 *L 83.0-108.0 mmHg Arterial Blood HCO3 21.6 21.0-28.0 mmol/L Arterial Blood Oxygen Saturation 83.7 *L 94.0-98.0 % Arterial Blood Base Excess -3.0 L -2.0-3.0 mmol/L Arterial Blood Oxyhemoglobin 82.7 L 94.0-98.0 % Arterial Blood Carboxyhemoglobin 1.2 0.5-1.5 % Arterial Blood Methemoglobin 0.0 0.0-1.5 % Robi Test Yes Blood Gas Total Hemoglobin 12.00 L 13.5-17.5 g/dL Blood Gas Modality Room air FiO2 % 21.0 Blood Gas Critical Value Read Back yes Blood Gas Notified Whom lincoln trujillo np Blood Gas Notified Time [id number] Blood Gas Notified By christos barrera i. White Blood Count 14.9 #H 4.4-10.8 10^3/uL Red Blood Count 3.65 L 4.5-5.90 10^6/uL Hemoglobin 12.3 #L 13.5-17.5 g/dL Hematocrit 36.9 #L 41.0-53.0 % Mean Corpuscular Volume 101.2 H 80.0-100.0 fL Mean Corpuscular Hemoglobin 33.8 H 28.0-32.0 pg Mean Corpuscular Hemoglobin Concent 33.4 32.0-36.0 g/dL Red Cell Distribution Width 14.0 11.8-14.3 % Platelet Count 683 H 140-450 10^3/uL Mean Platelet Volume 7.3 6.9-10.8 fL Neutrophils (%) (Auto) 84.9 H 37.0-80.0 % Lymphocytes (%) (Auto) 5.8 L 10.0-50.0 % Monocytes (%) (Auto) 8.8 0.0-12.0 % Eosinophils (%) (Auto) 0.2 0.0-7.0 % Basophils (%) (Auto) 0.3 0.0-2.0 % Neutrophils # (Auto) 12.6 H 1.6-8.6 10 ^3/uL Lymphocytes # (Auto) 0.9 0.4-5.4 10 ^3/uL Monocytes # (Auto) 1.3 0-1.3 10 ^3/uL Eosinophils # (Auto) 0 0-0.8 10 ^3/uL Basophils # (Auto) 0 0-0.2 10 ^3/uL Nucleated Red Blood Cells 0.0 % Phosphorus Level 4.2 2.4-5.1 mg/dL Magnesium Level 2.1 1.6-2.6 mg/dL Total Bilirubin < 0.2 L 0.2-1.0 mg/dL Aspartate Amino Transferase (AST) 52 H 13-40 U/L Alanine Aminotransferase (ALT) 47 H 7-40 U/L Alkaline Phosphatase 78 46-116 U/L B-Type Natriuretic Peptide 626.62 0-100 pg/mL Total Protein 6.7 5.7-8.2 g/dL Albumin 3.5 3.2-4.8 g/dL Test 03/30/25 05:49 03/29/25 16:04 03/29/25 13:52 03/29/25 13:30 Range/Units Differential Total Cells Counted 100.0 100 Neutrophils % (Manual) 91 H 37.0-80.0 Band Neutrophils % (Manual) 0 Lymphocytes % (Manual) 4 L 10.0-50.0 Monocytes % (Manual) 5 0-12 Eosinophils % (Manual) 0 0-7 Basophils % (Manual) 0 0.0-2.0 Metamyelocytes % (manual) 0 Myelocytes % (Manual) 0 Promyelocytes % (Manual) 0 Blast Cells % (Manual) 0 Reactive Lymphocytes 0 Platelet Estimate Increased Troponin I High Sensitivity 24 </=54 ng/L Urine Color Yellow Yellow Urine Clarity Turbid H Clear Urine pH 5.5 5.0-9.0 Urine Specific [place] 1.024 1.001-1.035 Urine Protein 1+ H Negative Urine Ketones Negative Negative Urine Blood Negative Negative /uL Urine Nitrite Negative Negative Urine Bilirubin Negative Negative Urine Urobilinogen Normal Negative mg/dL Urine Leukocyte Esterase Negative Negative /uL Urine RBC 2 0 - 3 /hpf Urine Microscopic WBC 3 0-3 /HPF Urine Squamous Epithelial Cells Few <5 /hpf Urine Amorphous Crystals Few None Seen /hpf Urine Bacteria None seen None Seen /hpf Urine Glucose Normal Normal mg/dL Lactic Acid Level 2.0 0.4-2.0 mmol/L Test 03/29/25 11:59 Range/Units Prothrombin Time 15.1 H 9.3-11.8 sec Prothrombin Time INR 1.48 H 0.9-1.15 Activated Partial Thromboplast Time 58.1 H 24.5-34.5 SEC Microbiology Date/Time Source Procedure Growth Status 04/02/25 01:33 Stool Clostridium difficile Toxin Assay - Final Complete 03/29/25 13:30 Blood Blood Culture - Preliminary NO GROWTH AFTER 72 HOURS OF INCUBATION. Resulted Problems(with codes): (1) Sepsis (2) Pneumonia (3) COPD exacerbation (4) Leukocytosis (5) Hypoxemia (6) Fever Plan/Recommendation ASSESSMENT AND PLAN: ID Problem List: \-- Acute hypoxic respiratory failure \-- COPD exacerbation \-- Pneumonia \-- Chronic hypoxic respiratory failure on home O2 \-- CKD Stage 5 \-- Atrial fibrillation \-- Hypertension \-- Mild sepsis \-- Ischemic encephalopathy Assessment: This is a 80-year-old male with a past medical history of COPD, emphysema (on home oxygen), atrial fibrillation, lumbar radiculopathy, and CKD Stage 5, who presents with shortness of breath, hypoxia, and acute hypoxic respiratory failure. On home oxygen with SpO2 noted at 85% prior to admission, and requiring supplemental oxygenation up to 3L/min during hospitalization. Initial labs on admission notable for leukocytosis (WBC as high as 25.4, now 14.9), hemoglobin 10.3, platelet count 478, lactic acid 2.0, AST 52, ALT 47, BNP 626.62. Febrile to 100.6F on admission. Imaging: Chest X-ray revealed left basilar consolidation with small left pleural effusion; chest CT with left lower lobe airspace disease, moderate left pleural effusion, and right lung patchy airspace disease (likely atelectasis). Repeat CXRs show persistent consolidation. Physical examination shows crackles and diminished breath sounds at the left lung base/mid lung. Stool C. difficile testing negative. Cultures to date show no growth. He is receiving Zosyn and doxycycline (since 03/30) as well as sotalol, Eliquis, sildenafil, Lasix, and famotidine. EF on echocardiogram 60-65%. Mild aortic stenosis. QTc 413. Plan: \-- Continue antibiotic therapy; recommend transition from Zosyn/doxycycline to ceftriaxone and azithromycin \-- Sputum culture and MRSA nasal swab recommended \-- Continue diuresis with Lasix as clinically appropriate \-- Gentle fluid resuscitation (given CKD 5 and ANTONY on admission) \-- Defer to primary team for management of COPD exacerbation (bronchodilators, mucolytics as indicated) \-- Monitor for worsening hypoxia \-- Patient may transition to oral antibiotics upon clinical stability \-- Cultures pending \-- Monitor for sepsis, adjust management as needed Isolation Precautions: Standard Assessment and plan were discussed with the patient as written above. Plan is subject to change pending new information. Updates may be added as an addendum if necessary. Teddy Jessica M.D. [facility] Ph: ? Teams text: [email or web address] Electronically signed by: Teddy Jessica MD, 04/02/2025 \ History: The patient's chart and medications were reviewed in detail and the patient was seen and examined. History obtained from: patient 80-year-old male with a history of COPD/emphysema (home oxygen), atrial fibrillation, lumbar radiculopathy, and CKD stage 5 presents with shortness of breath and difficulty breathing. Found to be hypoxic and in acute respiratory failure despite home oxygen (SpO2 85%), was admitted for pneumonia. Chest imaging revealed left basilar consolidation/effusion. Has had intermittent fevers (max 100.6F on admission) and leukocytosis. Negative C. difficile. Review of Systems: A complete 10-system review of systems was completed and negative except as noted in the HPI or here. -CONSTITUTIONAL: Denies weight loss or chills. Reports fever at home/admission. -HEENT: Denies vision or hearing changes. -RESPIRATORY: Positive for shortness of breath and cough. -CARDIOVASCULAR: Denies chest pain or palpitations. -GASTROINTESTINAL: Reports diarrhea; denies abdominal pain, nausea, or vomiting. -GENITOURINARY: Denies dysuria or urinary frequency. -MUSCULOSKELETAL: Denies myalgias or joint pain. -SKIN: Denies rash or pruritus. -NEUROLOGICAL: Denies headache or syncope. -PSYCHIATRIC: Denies recent changes in mood, anxiety, or depression. Past Medical History: Diagnosis COPD/emphysema (on home oxygen) Atrial fibrillation CKD Stage 5 Lumbar radiculopathy Past Surgical History: Not provided in transcript. Home Medications: -doxycycline -piperacillin-tazobactam (Zosyn) -apixaban (Eliquis) -sotalol -sildenafil -furosemide (Lasix) -famotidine (Dosage, route, and frequency not specified. Patient currently receiving doxycycline and Zosyn since 03/30; other home medications continued during admi ssion.) Allergies: Not provided in transcript. Family History: Not provided in transcript. Social History: Not provided in transcript. Objective: Vital Signs on Arrival: Temperature: 97.6F Blood Pressure: 97/50 mmHg Pulse: 62 bpm Respiratory Rate: 28/min SpO2: 85% on home oxygen Most Recent Vital Signs: Not provided in transcript. Admission Weight: Not provided in transcript. Physical Exam: General: NAD Neck: Supple. No masses. HEENT: PERRL. Normal lids and conjunctiva. Moist mucous membranes. Oropharynx without lesions, exudates or excessive erythema. Normal appearance of the external aspects of the nose and ears. Heart: Regular rhythm, normal rate. No murmur. No lower extremity edema. Lungs: Crackles and diminished breath sounds at the left lung base/mid lung. Abdomen: Soft. Non-tender. Non-distended. No masses or abdominal hernia. Msk: No digital cyanosis. Normal strength and tone in all 4 limbs Skin: Warm and dry, no rashes. Neuro: Alert. No facial droop or slurred speech. Extra-ocular movements intact. Sensation intact to soft touch in all 4 limbs. Psych: Appropriate mood. Full affect. Oriented to person, place, time, and situation. Lines: Not provided in transcript. Diagnostic Studies: Available diagnostic studies were reviewed personally. Significant relevant results and findings are outlined below or addressed in the Assessment and Plan above. Pertinent Imaging: -Chest X-ray: Left basilar consolidation and small left pleural effusion; persistent consolidation on follow-up. -Chest CT: Left lower lobe airspace disease, moderate left pleural effusion, patchy airspace disease at the right base (may be atelectasis). -Echocardiogram: Ejection fraction 60-65%. Mild aortic stenosis. No significant valvular regurgitation. Laboratory Data: -WBC up to 25.4 (now 14.9) -Hemoglobin 10.3 -Platelet count 478 -Lactic acid 2.0 (on admission) -AST 52 -ALT 47 -BNP 626.62 Microbiology: -Blood cultures: No growth to date -Stool C. difficile test: Negative Additional Data: Not provided in transcript. Plan discussed with: Patient TEDDY JESSICA MD Apr 03, 2025 07:47
--- NOTE | 2025-04-03 08:30 | DVHPN2 ---
Consult Progress Note Objective vital signs Vital Sign Date Time Temp Pulse Resp B/P (MAP) Pulse Ox O2 Delivery O2 Flow Rate FiO2 04/03/25 05:48 83 18 98 04/03/25 05:38 Nasal Cannula* 3 32 04/03/25 05:00 98.3 149/56 (87) 98.3 Total Intake and Output 04/02/25 04/02/25 04/03/25 15:00 23:00 07:00 Intake Total 150 ml 1000 ml 800 ml Balance 150 ml 1000 ml 800 ml medications Current Medications Medications Dose Ordered Sig/Anjel Route Start Time Stop Time Status Last Admin Dose Admin Cefepime HCl 50 ml @ 12.5 mls/hr DAILY IV 03/30/25 10:00 Cancel Acetaminophen 325 mg Q4HP PRN PO 03/29/25 19:00 03/31/25 03:08 Morphine Sulfate 2 mg Q4HPRN PRN IV 03/29/25 19:00 Nitroglycerin 0.4 mg Q5MINP PRN SL 03/29/25 19:00 Hold Morphine Sulfate 2 mg Q30M PRN IV 03/29/25 19:00 Piperacillin Sod/ Tazobactam Sod 100 ml @ 25 mls/hr Q8HR@0100,0900,1700 IV 03/30/25 09:00 04/03/25 01:12 Apixaban 5 mg BID PO 03/30/25 10:00 Hold Atorvastatin Calcium 20 mg DAILY PO 03/30/25 10:00 04/02/25 09:14 Famotidine 10 mg DAILY PO 03/30/25 10:00 04/02/25 09:12 Gabapentin 300 mg DAILY PO 03/30/25 10:00 04/02/25 09:13 Montelukast Sodium 10 mg HS PO 03/30/25 22:00 04/02/25 20:54 Sildenafil Citrate 20 mg BID PO 03/30/25 10:00 04/02/25 09:13 Sotalol HCl 40 mg BID PO 03/30/25 10:00 04/02/25 09:15 Albuterol 2.5 mg Q4HWA NEB 03/30/25 18:00 04/03/25 05:38 Doxycycline Hyclate 100 ml @ 50 mls/hr Q12H IV 03/30/25 22:00 04/02/25 20:56 Enoxaparin Sodium 80 mg DAILY SC 04/02/25 10:00 04/02/25 09:15 Saccharomyces Boulardii 250 mg DAILY PO 04/02/25 10:00 04/02/25 09:14 Sodium Chloride 1,000 ml @ 75 mls/hr [id number] IV 04/02/25 10:00 04/02/25 10:49 laboratory and microbiology Laboratory Tests 04/03/25 06:02 04/01/25 13:09 Test 04/03/25 06:02 Range/Units Serum Glucose 111 H 74-106 mg/dL Dietary Evaluation Review Comments: Cardiac Renal diet with 62 g protein restriction Expected Outcomes/Goals: Prevent uremic syndrome. TEDDY JESSICA MD Apr 03, 2025 08:30
--- NOTE | 2025-04-03 08:36 | DVHPN2 ---
Progress Note Date Seen: Apr 03, 2025 Medical Necessity Reason Pt with a Central, PICC or Fol: No Subjective Patient reports: No new complaints Review of Systems: HEENT:Normal, CVS:Normal, RESPIRATORY:Abnormal, GI:Normal, :Normal, MSK:Normal, NEURO:Normal Objective vital signs Vital Sign Date Time Temp Pulse Resp B/P (MAP) Pulse Ox O2 Delivery O2 Flow Rate FiO2 04/03/25 07:57 96 Nasal Cannula* 2 28 04/03/25 05:48 83 18 04/03/25 05:00 98.3 149/56 (87) 98.3 Total Intake and Output 04/02/25 04/02/25 04/03/25 15:00 23:00 07:00 Intake Total 150 ml 1000 ml 800 ml Balance 150 ml 1000 ml 800 ml medications Current Medications Medications Dose Ordered Sig/Anjel Route Start Time Stop Time Status Last Admin Dose Admin Cefepime HCl 50 ml @ 12.5 mls/hr DAILY IV 03/30/25 10:00 Cancel Acetaminophen 325 mg Q4HP PRN PO 03/29/25 19:00 03/31/25 03:08 325 MG Morphine Sulfate 2 mg Q4HPRN PRN IV 03/29/25 19:00 Nitroglycerin 0.4 mg Q5MINP PRN SL 03/29/25 19:00 Hold Morphine Sulfate 2 mg Q30M PRN IV 03/29/25 19:00 Apixaban 5 mg BID PO 03/30/25 10:00 Hold Atorvastatin Calcium 20 mg DAILY PO 03/30/25 10:00 04/02/25 09:14 20 MG Famotidine 10 mg DAILY PO 03/30/25 10:00 04/02/25 09:12 10 MG Gabapentin 300 mg DAILY PO 03/30/25 10:00 04/02/25 09:13 300 MG Montelukast Sodium 10 mg HS PO 03/30/25 22:00 04/02/25 20:54 10 MG Sildenafil Citrate 20 mg BID PO 03/30/25 10:00 04/02/25 09:13 20 MG Sotalol HCl 40 mg BID PO 03/30/25 10:00 04/02/25 09:15 40 MG Albuterol 2.5 mg Q4HWA NEB 03/30/25 18:00 04/03/25 05:38 2.5 MG Enoxaparin Sodium 80 mg DAILY SC 04/02/25 10:00 04/02/25 09:15 80 MG Saccharomyces Boulardii 250 mg DAILY PO 04/02/25 10:00 04/02/25 09:14 250 MG Sodium Chloride 1,000 ml @ 75 mls/hr [id number] IV 04/02/25 10:00 04/02/25 10:49 75 MLS/HR Ceftriaxone Sodium/Dextrose 50 ml @ 50 mls/hr DAILY IV 04/03/25 10:00 UNV Doxycycline Monohydrate 100 mg Q12HR PO 04/03/25 10:00 UNV laboratory and microbiology Laboratory Tests 04/03/25 06:02 04/01/25 13:09 Test 04/03/25 06:02 Range/Units Serum Glucose 111 H 74-106 mg/dL Microbiology Date/Time Source Procedure Growth Status 04/02/25 01:33 Stool Clostridium difficile Toxin Assay - Final Complete 03/29/25 13:30 Blood Blood Culture - Preliminary NO GROWTH AFTER 72 HOURS OF INCUBATION. Resulted Problem List/Assessment/Plan Problem List/Assessment/Plan Acute kidney injury on Chronic kidney disease four hemodynamic mediated etiology in the setting of hypotension/pneumonia Chronic kidney disease four baseline---follows dr.shankar Pickens on chronic hypoxic respiratory failure Atrial fibrillation diarrhoea recs DC IV fluids Renal function stable Gentle Lasix Plan discussed with: Patient My Orders My Orders Orders - POLO NO MD Procedure Category Date Status Time Basic Metabolic Panel LAB 04/04/25 Verified 05:00 Basic Metabolic Panel LAB 04/05/25 Verified 05:00 Basic Metabolic Panel LAB 04/06/25 Verified 05:00 Basic Metabolic Panel LAB 04/07/25 Verified 05:00 Basic Metabolic Panel LAB 04/08/25 Verified 05:00 Basic Metabolic Panel LAB 04/09/25 Verified 05:00 Sodium Chloride 0.9% PHA 04/02/25 In Process 10:00 Dietary Evaluation Review Comments: Cardiac Renal diet with 62 g protein restriction Expected Outcomes/Goals: Prevent uremic syndrome. POLO NO MD Apr 03, 2025 08:36
--- NOTE | 2025-04-03 10:03 | DVHPN2 ---
Progress Note - Dictate Date Seen: Apr 03, 2025 Medical Necessity Reason Pt with a Central, PICC or Fol: No vital signs Vital Sign Date Time Temp Pulse Resp B/P (MAP) Pulse Ox O2 Delivery O2 Flow Rate FiO2 04/03/25 09:36 97 Nasal Cannula 3.0 04/03/25 09:36 32 04/03/25 09:36 85 18 04/03/25 09:02 129/78 04/03/25 05:00 98.3 98.3 Total Intake and Output 04/02/25 04/02/25 04/03/25 15:00 23:00 07:00 Intake Total 150 ml 1000 ml 800 ml Balance 150 ml 1000 ml 800 ml medications Current Medications Medications Dose Ordered Sig/Anjel Route Start Time Stop Time Status Last Admin Dose Admin Cefepime HCl 50 ml @ 12.5 mls/hr DAILY IV 03/30/25 10:00 Cancel Acetaminophen 325 mg Q4HP PRN PO 03/29/25 19:00 03/31/25 03:08 325 MG Morphine Sulfate 2 mg Q4HPRN PRN IV 03/29/25 19:00 Nitroglycerin 0.4 mg Q5MINP PRN SL 03/29/25 19:00 Hold Morphine Sulfate 2 mg Q30M PRN IV 03/29/25 19:00 Apixaban 5 mg BID PO 03/30/25 10:00 Hold Atorvastatin Calcium 20 mg DAILY PO 03/30/25 10:00 04/03/25 09:01 20 MG Famotidine 10 mg DAILY PO 03/30/25 10:00 04/03/25 09:03 10 MG Gabapentin 300 mg DAILY PO 03/30/25 10:00 04/03/25 09:01 300 MG Montelukast Sodium 10 mg HS PO 03/30/25 22:00 04/02/25 20:54 10 MG Sildenafil Citrate 20 mg BID PO 03/30/25 10:00 04/03/25 09:02 20 MG Sotalol HCl 40 mg BID PO 03/30/25 10:00 04/03/25 09:02 40 MG Albuterol 2.5 mg Q4HWA NEB 03/30/25 18:00 04/03/25 09:36 2.5 MG Enoxaparin Sodium 80 mg DAILY SC 04/02/25 10:00 04/03/25 09:01 80 MG Saccharomyces Lesdii 250 mg DAILY PO 04/02/25 10:00 04/03/25 09:03 250 MG Ceftriaxone Sodium/Dextrose 50 ml @ 50 mls/hr DAILY IV 04/03/25 10:00 Doxycycline Monohydrate 100 mg Q12HR PO 04/03/25 10:00 Furosemide 20 mg DAILY IV 04/03/25 10:00 laboratory and microbiology Laboratory Tests 04/03/25 06:02 04/01/25 13:09 Test 04/03/25 06:02 Range/Units Serum Glucose 111 H 74-106 mg/dL Assessment/Plan Patient is a 80-year-old gentleman who presented to the hospital for 2 days of shortness of breaths. It seems that oxygen saturation was 85-92% at home on room air. In emergency room it was 88%. Cardiology is involved for cardiac aspects of care. Patient is known to our practice from outside and before. Does have history of emphysema/COPD. Patient mentions poor appetite for around a week. Is found to be leukocytotic in emergency room. Past medical history includes COPD/emphysema, hyperlipidemia, lung nodule, anemia, CKD (GFR around 25-30), BPH, chronic pancreatitis, restless leg syndrome, lumbar radiculopathy, peripheral artery disease, atrial fibrillation (on Pradaxa and sotalol as outpatient), insomnia and old history of inguinal hernia. Echocardiogram of February 2025 (performed in the office) revealed preserved ejection fraction WBC: 25.4 - 23.6 - 24.3 - 14.9 Hemoglobin: 10.3 - 9.0 - 10.1 - 12.3 BNP: 616.38 - 626.62 Creatinine: 2.85 - 2.65 - 2.67 - 2.81 - 2.62 - 2.42 Potassium: 4.8 - 4.4 - 4.7 - 4.4 - 3.9 - 3.9 Troponin (high sensitive): 49- 39 - 24 Chest x-ray revealed: IMPRESSION: Left basilar consolidation with small left pleural effusion. Repeat chest xry revealed: IMPRESSION: Left basilar consolidation with small left pleural effusion. Repeat chest xry revealed: IMPRESSION: 1. Mild interval progression of left basilar pulmonary airspace disease with consolidative features. CT of chest revealed: IMPRESSION: Left lower lobe airspace disease. Moderate left pleural effusion. Patchy airspace opacities in the right lung base may represent atelectasis. EKG revealed atrial fibrillation with RVR Tele reveals atrial fibrillation with RVR, later: NSR Echocardiogram revealed: Left ventricle: Left ventricle is normal-sized with normal systolic function. LVEF of 60-65%. There was no gross wall motion abnormality. Right ventricle was normal-sized with normal systolic function. Both atria were mildly dilated. Aortic valve: Aortic valve was trileaflet. Aortic leaflets were mildly dilated. Aortic sclerosis with no stenosis was seen. There was no aortic insufficiency. There was mild mitral regurgitation. There was loij-sv-govardey tricuspid regurgitation. Pulmonary valve did not reveal any insufficiency. Right ventricular systolic pressure was assessed at 46 mm Hg. There was no pericardial effusion. There was IVC dilatation with normal respiratory variation. Patient is a 80-year-old gentleman who presented with shortness of breath and acute respiratory failure. Presentation is in favor of COPD exacerbation. Was found to have leukocytosis and pneumonia could have contributed to the clinical picture. Does have baseline history of atrial fibrillation and was found to have atrial fibrillation with RVR which could contributed clinical picture. Being followed by Pulmonary, Nephrology and ID Pneumonia, community-acquired, multifocal COPD exacerbation Emphysema Atrial fibrillation CKD at baseline Anemia Cardiac suggestion for management: Manage on telemetry Follow-up electrolytes and kidney function tests and correct abnormalities Full anticoagulation (on Pradaxa as outpatient). You may give therapeutic Lovenox as inpatient for now Antibiotics as per Primary / Pulmonary / ID Pulmonary / ID following Cardiac javier, stable Further evaluation and management depends on the above and clinical course A total of 55 minutes was spent reviewing the patient record, examining the patient, making a diagnostic and therapeutic plan, discussing this plan with medical personnel, following up on diagnostic studies and following the patient for clinical stability excluding any and all procedures. At least 50% of this time was spent in direct, [id number] contact. Thank you for allowing me to participate in this patient's care. Further recommendations will depend on patient's clinical course. Please do not hesitate to contact me if you have any questions or concerns. This medical document was created using electronic medical record system with [employer] dictation system. Although this document has been carefully reviewed, there may still be some phonetic and typographical errors. These areas are purely typographical due to the imperfection of the software programs, and do not reflect any compromise in the patient's medical care. Dietary Evaluation Review Comments: Cardiac Renal diet with 62 g protein restriction Expected Outcomes/Goals: Prevent uremic syndrome. Plan discussed with: Patient, Spouse (at bedside), Other (nurse and primary team) NAV DENSON MD Apr 03, 2025 10:03
[2025-04-03] MEDS: DOXYCYCLINE 100 MG TAB/CAP PO SCH (10:14)
[2025-04-03] MEDS: cefTRIAXone 2GM/50ML D5W 50 ML IV SCH (10:14)
[2025-04-03] MEDS: FUROSEMIDE 20 MG/2 ML VIAL IV SCH (10:15)
[2025-04-03] MEDS ORDERED: LEVO500T91 PO (10:30)
[2025-04-03 12:28] LABS: Hematocrit 31.7 % (41.0-53.0); Hemoglobin 10.5 g/dL (13.5-17.5); Mean Corpuscular Hemoglobin 33.4 pg (28.0-32.0); Mean Corpuscular Volume 100.7 fL (80.0-100.0); Nucleated Red Blood Cells % 0.0 %
--- NOTE | 2025-04-03 13:03 | DVHPN2 ---
Progress Note - Dictate Date Seen: Apr 03, 2025 Medical Necessity Reason Pt with a Central, PICC or Fol: No vital signs Vital Sign Date Time Temp Pulse Resp B/P (MAP) Pulse Ox O2 Delivery O2 Flow Rate FiO2 04/03/25 11:06 36.2 73 04/03/25 10:15 129/78 04/03/25 09:46 18 98 04/03/25 09:36 Nasal Cannula 3.0 04/03/25 09:36 32 Total Intake and Output 04/02/25 04/02/25 04/03/25 15:00 23:00 07:00 Intake Total 150 ml 1000 ml 800 ml Balance 150 ml 1000 ml 800 ml medications Current Medications Medications Dose Ordered Sig/Anjel Route Start Time Stop Time Status Last Admin Dose Admin Cefepime HCl 50 ml @ 12.5 mls/hr DAILY IV 03/30/25 10:00 Cancel Acetaminophen 325 mg Q4HP PRN PO 03/29/25 19:00 03/31/25 03:08 325 MG Morphine Sulfate 2 mg Q4HPRN PRN IV 03/29/25 19:00 Nitroglycerin 0.4 mg Q5MINP PRN SL 03/29/25 19:00 Hold Morphine Sulfate 2 mg Q30M PRN IV 03/29/25 19:00 Apixaban 5 mg BID PO 03/30/25 10:00 Hold Atorvastatin Calcium 20 mg DAILY PO 03/30/25 10:00 04/03/25 09:01 20 MG Famotidine 10 mg DAILY PO 03/30/25 10:00 04/03/25 09:03 10 MG Gabapentin 300 mg DAILY PO 03/30/25 10:00 04/03/25 09:01 300 MG Montelukast Sodium 10 mg HS PO 03/30/25 22:00 04/02/25 20:54 10 MG Sildenafil Citrate 20 mg BID PO 03/30/25 10:00 04/03/25 09:02 20 MG Sotalol HCl 40 mg BID PO 03/30/25 10:00 04/03/25 09:02 40 MG Albuterol 2.5 mg Q4HWA NEB 03/30/25 18:00 04/03/25 09:36 2.5 MG Enoxaparin Sodium 80 mg DAILY SC 04/02/25 10:00 8/16/25 09:01 80 MG Saccharomyces Boulardii 250 mg DAILY PO 04/02/25 10:00 04/03/25 09:03 250 MG Ceftriaxone Sodium/Dextrose 50 ml @ 50 mls/hr DAILY IV 04/03/25 10:00 04/03/25 10:14 50 MLS/HR Doxycycline Monohydrate 100 mg Q12HR PO 04/03/25 10:00 04/03/25 10:14 100 MG Furosemide 20 mg DAILY IV 04/03/25 10:00 04/03/25 10:15 20 MG laboratory and microbiology Laboratory Tests 04/03/25 06:02 Test 04/03/25 06:02 Range/Units Serum Glucose 111 H 74-106 mg/dL Assessment/Plan Acute exacerbation of COPD /trelegy Emphysema Multifocal pneumonia Pain Acute on chronic hypoxemic respiratory failure CKD Management plan Supportive care/supplemental O2 Titrate to keep O2 sats above 90% Incentive spirometry Albuterol Atrovent bronchodilators Antibiotics Deescalate based on culture results GI/DVT prophylaxis management per primary team Dietary Evaluation Review Comments: Cardiac Renal diet with 62 g protein restriction Expected Outcomes/Goals: Prevent uremic syndrome. Plan discussed with: Patient ELVI WASHINGTON MD Apr 03, 2025 13:03
[2025-04-03 16:24] LABS: COVID19 ANTIGEN SOFIA FIA NEGATIVE (NEGATIVE)
--- NOTE | 2025-04-03 16:33 | DVHPN2 ---
Progress Note Date Seen: Apr 03, 2025 Medical Necessity Reason Pt with a Central, PICC or Fol: No Subjective Review of Systems: CVS:Normal, RESPIRATORY:Normal, NEURO:Normal Objective vital signs Vital Sign Date Time Temp Pulse Resp B/P (MAP) Pulse Ox O2 Delivery O2 Flow Rate FiO2 04/03/25 14:00 81 18 98 04/03/25 13:50 Nasal Cannula 2.0 04/03/25 13:50 28 04/03/25 13:00 97.9 102/66 (78) 97.9 Total Intake and Output 04/02/25 04/02/25 04/03/25 15:00 23:00 07:00 Intake Total 150 ml 1000 ml 800 ml Balance 150 ml 1000 ml 800 ml medications Current Medications Medications Dose Ordered Sig/Anjel Route Start Time Stop Time Status Last Admin Dose Admin Cefepime HCl 50 ml @ 12.5 mls/hr DAILY IV 03/30/25 10:00 Cancel Acetaminophen 325 mg Q4HP PRN PO 03/29/25 19:00 03/31/25 03:08 325 MG Morphine Sulfate 2 mg Q4HPRN PRN IV 03/29/25 19:00 Nitroglycerin 0.4 mg Q5MINP PRN SL 03/29/25 19:00 Hold Morphine Sulfate 2 mg Q30M PRN IV 03/29/25 19:00 Apixaban 5 mg BID PO 03/30/25 10:00 Hold Atorvastatin Calcium 20 mg DAILY PO 03/30/25 10:00 04/03/25 09:01 20 MG Famotidine 10 mg DAILY PO 03/30/25 10:00 04/03/25 09:03 10 MG Gabapentin 300 mg DAILY PO 03/30/25 10:00 04/03/25 09:01 300 MG Montelukast Sodium 10 mg HS PO 03/30/25 22:00 04/02/25 20:54 10 MG Sildenafil Citrate 20 mg BID PO 03/30/25 10:00 04/03/25 09:02 20 MG Sotalol HCl 40 mg BID PO 03/30/25 10:00 04/03/25 09:02 40 MG Albuterol 2.5 mg Q4HWA NEB 03/30/25 18:00 04/03/25 13:50 2.5 MG Enoxaparin Sodium 80 mg DAILY SC 04/02/25 10:00 04/03/25 09:01 80 MG Saccharomyces Boulardii 250 mg DAILY PO 04/02/25 10:00 04/03/25 09:03 250 MG Ceftriaxone Sodium/Dextrose 50 ml @ 50 mls/hr DAILY IV 04/03/25 10:00 04/03/25 10:14 50 MLS/HR Doxycycline Monohydrate 100 mg Q12HR PO 04/03/25 10:00 04/03/25 10:14 100 MG Furosemide 20 mg DAILY IV 04/03/25 10:00 04/03/25 10:15 20 MG Examination: GENERAL:Normal, LUNGS:Normal, CVS:Normal, ABDOMEN:Normal, SKIN:Normal, NEURO:Normal laboratory and microbiology Laboratory Tests 04/03/25 06:02 Test 04/03/25 06:02 Range/Units Serum Glucose 111 H 74-106 mg/dL Microbiology Date/Time Source Procedure Growth Status 04/02/25 01:33 Stool Clostridium difficile Toxin Assay - Final Complete 03/29/25 13:30 Blood Blood Culture - Final NO GROWTH AFTER 5 DAYS OF INCUBATION. Complete Labs and/or images reviewed: Labs reviewed by me, Image(s) reviewed by me Problem List/Assessment/Plan Problem List/Assessment/Plan The patient was admitted for acute hypoxic respiratory failure. The respiratory failure is believed to be multifactorial, primarily due to gram-negative pneumonia, for which he received IV antibiotics. Currently, the patient remains on Zosyn and doxycycline for his pneumonia. He is experiencing a COPD exacerbation in addition to his pneumonia. To manage his respiratory symptoms, he has been receiving Med lisa treatments. His respiratory status is described as stable, though he requires 2 liters of oxygen via nasal cannula. The patient developed acute kidney injury superimposed on chronic kidney disease and was evaluated by a steffen house supervisor. His baseline kidney function is consistent with CKD stage 4. The patient experienced an episode of diarrhea yesterday, but testing for C. difficile infection came back negative. Despite these complications, Mr. Garnett is reported to be clinically stable and is being considered for discharge with home oxygen. general accounting manager is still arranging for home O2. Shadi Garnett is a patient with a history of COPD and emphysema, admitted for acute hypoxic respiratory failure likely due to gram-negative pneumonia and COPD exacerbation, also presenting with chronic persistent atrial fibrillation and chronic kidney disease. Acute Hypoxic Respiratory Failure Assessment: Patient admitted for acute hypoxic respiratory failure, likely multifactorial in etiology. Primary causes include gram-negative pneumonia and COPD exacerbation. Patient has an underlying history of emphysema. Currently, the patient is on 2 liters of nasal cannula oxygen. Arterial blood gas shows PaO2 of 50. Chest x-ray today revealed mild interval progression of left vascular pulmonary airspace disease with consolidated features. Patient has been receiving MedMed treatments and is currently on Zosyn and doxycycline for antibiotic coverage. Plan: - Continue Zosyn and doxycycline - Continue oxygen therapy via 2 liters nasal cannula - Continue Med lisa treatments - Arrange for home oxygen - Consult social studies department chair - DC once o2 has been arranged Chronic Persistent Atrial Fibrillation Assessment: Patient has a history of chronic persistent atrial fibrillation. He was seen by his fashion artist, Dr. Brooks, during this admission. Currently on anticoagulation therapy. Plan: - Continue full-dose Lovenox - Continue Eliquis 5 mg BID Chronic Kidney Disease Assessment: Patient has chronic kidney disease stage 4 as baseline. During this admission, he experienced acute kidney injury superimposed on CKD. He was evaluated by a steffen house supervisor. Plan: - Continue monitoring renal function Diarrhea Assessment: Patient experienced diarrhea yesterday. C. difficile test came back negative. Plan: - Monitor for resolution of diarrhea Plan discussed with: Patient My Orders My Orders Orders - TAMARA COLLIER Procedure Category Date Status Time * Minister Of Religion CONS 04/02/25 Transmitted Consult Discharge DISCHARGE 04/03/25 Transmitted 10:27 Communication Order ORDERS 04/03/25 Transmitted 14:21 Dietary Evaluation Review Comments: Cardiac Renal diet with 62 g protein restriction Expected Outcomes/Goals: Prevent uremic syndrome. Date of Service: Apr 03, 2025 Billing Provider: JAIDEN SANTOS MD Common Visit Codes: [id number] INP/OBS CARE (MOD) TAMARA COLLIER Apr 03, 2025 16:33
--- NOTE | 2025-04-03 18:30 | DVHDS2 ---
Discharge Summary Date of Admission Mar 29, 2025 at 18:47 Date of Discharge: Apr 03, 2025 Admitting Diagnosis acute hypoxic respiratory failure Labs/Diagnostic Data: Laboratory Results Test 04/03/25 15:20 04/03/25 06:02 04/02/25 14:26 03/31/25 08:55 Influenza Type A Antigen Negative (Negative) Influenza Type B Antigen Negative (Negative) SARS-CoV-2 Antigen (Rapid) Negative (NEGATIVE) White Blood Count 16.5 10^3/uL (4.4-10.8) Red Blood Count 3.15 10^6/uL (4.5-5.90) Hemoglobin 10.5 g/dL (13.5-17.5) Hematocrit 31.7 % (41.0-53.0) Mean Corpuscular Volume 100.7 fL (80.0-100.0) Mean Corpuscular Hemoglobin 33.4 pg (28.0-32.0) Mean Corpuscular Hemoglobin Concent 33.2 g/dL (32.0-36.0) Red Cell Distribution Width 13.8 % (11.8-14.3) Platelet Count 496 10^3/uL (140-450) Mean Platelet Volume 7.7 fL (6.9-10.8) Neutrophils (%) (Auto) 86.1 % (37.0-80.0) Lymphocytes (%) (Auto) 5.1 % (10.0-50.0) Monocytes (%) (Auto) 7.9 % (0.0-12.0) Eosinophils (%) (Auto) 0.6 % (0.0-7.0) Basophils (%) (Auto) 0.3 % (0.0-2.0) Neutrophils # (Auto) 14.2 10 ^3/uL (1.6-8.6) Lymphocytes # (Auto) 0.8 10 ^3/uL (0.4-5.4) Monocytes # (Auto) 1.3 10 ^3/uL (0-1.3) Eosinophils # (Auto) 0.1 10 ^3/uL (0-0.8) Basophils # (Auto) 0 10 ^3/uL (0-0.2) Nucleated Red Blood Cells 0.0 % Sodium Level 144 mmol/L (136-145) Potassium Level 3.9 mmol/L (3.5-5.1) Chloride Level 107 mmol/L (98-107) Carbon Dioxide Level 26 mmol/L (20-31) Anion Gap 11 (5-15) Blood Urea Nitrogen 50 mg/dL (9-23) Creatinine 2.42 mg/dL (0.700-1.30) Glomerular Filtration Rate Calc 27 mL/min (>90) BUN/Creatinine Ratio 20.7 (10.0-20.0) Serum Glucose 111 mg/dL (74-106) Calcium Level 8.9 mg/dL (8.7-10.4) Blood Gas Specimen Type Arterial Blood Gas Sample Site Right radial Blood Gas Patient Temperature 37.0 Arterial Blood Date Drawn [id number] Arterial Blood pH 7.386 (7.350-7.450) Arterial Blood Partial Pressure CO2 36.8 mmHg (35.0-48.0) Arterial Blood Partial Pressure O2 50.0 mmHg (83.0-108.0) Arterial Blood HCO3 21.6 mmol/L (21.0-28.0) Arterial Blood Oxygen Saturation 83.7 % (94.0-98.0) Arterial Blood Base Excess -3.0 mmol/L (-2.0-3.0) Arterial Blood Oxyhemoglobin 82.7 % (94.0-98.0) Arterial Blood Carboxyhemoglobin 1.2 % (0.5-1.5) Arterial Blood Methemoglobin 0.0 % (0.0-1.5) Robi Test Yes Blood Gas Total Hemoglobin 12.00 g/dL (13.5-17.5) Blood Gas Modality Room air FiO2 % 21.0 Blood Gas Critical Value Read Back yes Blood Gas Notified Whom lincoln trujillo np Blood Gas Notified Time [id number] Blood Gas Notified By figure model lilian barrera Phosphorus Level 4.2 mg/dL (2.4-5.1) Magnesium Level 2.1 mg/dL (1.6-2.6) Total Bilirubin < 0.2 mg/dL (0.2-1.0) Aspartate Amino Transferase (AST) 52 U/L (13-40) Alanine Aminotransferase (ALT) 47 U/L (7-40) Alkaline Phosphatase 78 U/L (46-116) B-Type Natriuretic Peptide 626.62 pg/mL (0-100) Total Protein 6.7 g/dL (5.7-8.2) Albumin 3.5 g/dL (3.2-4.8) Test 03/30/25 05:49 03/29/25 16:04 03/29/25 13:52 03/29/25 13:30 Differential Total Cells Counted 100.0 (100) Neutrophils % (Manual) 91 (37.0-80.0) Band Neutrophils % (Manual) 0 Lymphocytes % (Manual) 4 (10.0-50.0) Monocytes % (Manual) 5 (0-12) Eosinophils % (Manual) 0 (0-7) Basophils % (Manual) 0 (0.0-2.0) Metamyelocytes % (manual) 0 Myelocytes % (Manual) 0 Promyelocytes % (Manual) 0 Blast Cells % (Manual) 0 Reactive Lymphocytes 0 Platelet Estimate Increased Troponin I High Sensitivity 24 ng/L (</=54) Urine Color Yellow (Yellow) Urine Clarity Turbid (Clear) Urine pH 5.5 (5.0-9.0) Urine Specific [place] 1.024 (1.001-1.035) Urine Protein 1+ (Negative) Urine Ketones Negative (Negative) Urine Blood Negative /uL (Negative) Urine Nitrite Negative (Negative) Urine Bilirubin Negative (Negative) Urine Urobilinogen Normal mg/dL (Negative) Urine Leukocyte Esterase Negative /uL (Negative) Urine RBC 2 /hpf (0 - 3) Urine Microscopic WBC 3 /HPF (0-3) Urine Squamous Epithelial Cells Few /hpf (<5) Urine Amorphous Crystals Few /hpf (None Seen) Urine Bacteria None seen /hpf (None Seen) Urine Glucose Normal mg/dL (Normal) Lactic Acid Level 2.0 mmol/L (0.4-2.0) Test 03/29/25 11:59 Prothrombin Time 15.1 sec (9.3-11.8) Prothrombin Time INR 1.48 (0.9-1.15) Activated Partial Thromboplast Time 58.1 SEC (24.5-34.5) Other Laboratory Tests 04/03/25 06:02 Brief Hx & Hospital Course: Shadi Garnett is a patient with a history of chronic kidney disease stage 4, chronic obstructive pulmonary disease, and chronic persistent afib presenting with acute hypoxic respiratory failure. The respiratory failure was determined to be multifactorial, primarily due to gram-negative or gram-positive pneumonia and COPD exacerbation. The patient was admitted for acute hypoxic respiratory failure. During his hospital stay, Mr. Garnett received intravenous antibiotics to address the pneumonia. He was also found to have acute kidney injury superimposed on his underlying chronic kidney disease. The patient reported experiencing diarrhea, though C. difficile infection was doubted. Throughout his hospitalization, Mr. Garnett showed improvement in his respiratory status. Upon discharge, he was advised to follow up with his primary care physician and boxcar weigher. Shadi Garnett is a patient with chronic kidney disease stage 4 presenting with acute hypoxic respiratory failure due to pneumonia and COPD exacerbation, with acute kidney injury superimposed on chronic kidney disease. Acute Hypoxic Respiratory Failure Assessment: Patient admitted for acute hypoxic respiratory failure, which is multifactorial. Primary causes include gram-negative or gram-positive pneumonia and COPD exacerbation. Patient received IV antibiotics during hospital stay and showed improvement in respiratory status. Plan: - Continue monitoring respiratory status - Follow up with PCP and cardiology Pneumonia Assessment: Patient diagnosed with gram-negative or gram-positive pneumonia, contributing to acute hypoxic respiratory failure. IV antibiotics were administered during hospitalization. Plan: - Complete course of antibiotics as prescribed COPD Exacerbation Assessment: Patient experienced COPD exacerbation, contributing to acute hypoxic respiratory failure. Plan: - Follow up with PCP for COPD management Acute Kidney Injury superimposed on Chronic Kidney Disease Stage 4 Assessment: Patient has a history of CKD stage 4 and was found to have ANTONY during this admission. Patient reported diarrhea, which may have contributed to the ANTONY. Plan: - Monitor renal function - Follow up with PCP for ongoing management Diarrhea Assessment: Patient reported diarrhea. C. difficile infection is considered doubtful. Anticoagulation Management Assessment: Patient has a history of taking Lovenox and Eliquis. Condition at Discharge: Fair Final Diagnosis/Problems List Acute Hypoxic Respiratory Failure Assessment: Patient admitted for acute hypoxic respiratory failure, likely multifactorial from gram negative and gram positive PNA and COPD exacerbation Chronic Persistent Atrial Fibrillation Assessment: Patient has a history of chronic persistent atrial fibrillation. He was seen by Chronic Kidney Disease Diarrhea Discharge Disposition: Home Discharge Instruct/Medications Diet: Cardiac 2g Na,low cholest Activity: No Restrictions, As Tolerated Scheduled Alfuzosin Hydrochloride (Alfuzosin Hcl Er), 10 MG PO DAILY, (Reported) Atorvastatin Calcium (Atorvastatin Calcium), 1 TAB PO DAILY, (Reported) Dabigatran Etexilate Mesylate (Pradaxa), 1 CAP PO BID, (Reported) Ensifentrine (Ohtuvayre), 2.5 ML PO DAILY, (Reported) Famotidine (Pepcid Tablet), 10 MG PO DAILY, (Reported) Hydrocodone-Acetaminophen (Hydrocodone/Acetaminophen 5-325 mg), 1 TAB PO Q8HPRN, (Reported) Levofloxacin Hemihydrate (Levofloxacin), 1 TAB PO DAILY Montelukast Sodium (Montelukast Sodium), 10 MG PO HS, (Reported) Pantoprazole Sodium Sesquihydr (Protonix), 40 MG PO DAILY, (Reported) Sildenafil Citrate (Sildenafil Citrate), 20 MG PO BID, (Reported) Sotalol Hcl (Sotalol Hcl), 40 MG PO BID, (Reported) Scheduled PRN Albuterol Sulfate (Albuterol Sulfate Hfa), INH Q4HP PRN for SHORTNESS OF BREATH, (Reported) Miscellaneous Medications Ixkgupyapwt-Gmkrncydqant-Isrim (Trelegy Ellipta 100-62.5-25 Mcg/INH), 1 AER IN, (Reported) Gabapentin (Gabapentin), 300 MG PO, (Reported) Pramipexole Dihydrochloride (Pramipexole Dihydrochlori), 0.125 MG PO, (Reported) Zolpidem Tartrate (Zolpidem Tartrate), 1 TAB PO, (Reported) Discharge Statement: "Patient was advised to return to the ER or call 911 if any headaches, dizziness, shortness of breath, chest pain, abdominal pain, bleeding, fevers, or worsening of medical condition. Patient was counseled about treatment plan, medications, possible side effects, patientverbalized understanding. All questions were answered to the best of my ability. This discharge took greater then 30 minutes in planning, reviewing documentation, counseling the patient, and discussing with other team members." ASSESSMENT ASSESSMENT Assessment Acute Hypoxic Respiratory Failure Assessment: Patient admitted for acute hypoxic respiratory failure, likely multifactorial from gram negative and gram positive PNA and COPD exacerbation Chronic Persistent Atrial Fibrillation Assessment: Patient has a history of chronic persistent atrial fibrillation. He was seen by Chronic Kidney Disease Diarrhea TAMARA COLLIER Apr 03, 2025 18:30
== END 2025-04-03 18:20 | disposition home or self-care (01) | DRG 177 ==
LOC: EDBD 10:16 → EDUNIT# 10:16 → ER 10:16 → OVERFLOW 18:47 → TELE-CENTR 23:05
PROVIDERS: ADMIT Internal Medicine; ATTEND Internal Medicine
DX: J15.69 Pneumonia due to other Gram-negative bacteria (principal); J96.21 Acute and chronic respiratory failure with hypoxia; J90 Pleural effusion, not elsewhere classified; I12.0 Hypertensive chronic kidney disease with stage 5 chronic kidney disease or end stage renal disease; I48.19 Other persistent atrial fibrillation; N18.5 Chronic kidney disease, stage 5; J44.1 Chronic obstructive pulmonary disease with (acute) exacerbation; G93.49 Other encephalopathy; J44.0 Chronic obstructive pulmonary disease with (acute) lower respiratory infection; N17.9 Acute kidney failure, unspecified; K86.1 Other chronic pancreatitis; J15.9 Unspecified bacterial pneumonia; Z20.822 Contact with and (suspected) exposure to COVID-19; Z99.81 Dependence on supplemental oxygen; I73.9 Peripheral vascular disease, unspecified; I70.0 Atherosclerosis of aorta; J43.9 Emphysema, unspecified; D64.9 Anemia, unspecified; I07.1 Rheumatic tricuspid insufficiency; M54.16 Radiculopathy, lumbar region; G47.00 Insomnia, unspecified; N40.0 Benign prostatic hyperplasia without lower urinary tract symptoms; E78.5 Hyperlipidemia, unspecified; Z87.891 Personal history of nicotine dependence; Z82.3 Family history of stroke
CPT/HCPCS: 36415; 36600; 71045; 71046; 71250; 80048; 80053; 81001; 82805; 83605; 83735; 83880; 84100; 84484; 85007; 85025; 85027; 85610; 85730; 87040; 87426; 87493; 87804; 93005; 93306; 94640; 94667; 94668; 96365; 96375; 97110; 97116; 97163; 97530; G0378; J2543